=== PATIENT | male | born 1955 | race Caucasian/White ===

== ENCOUNTER 2021-08-05 10:50 | Inpatient (IN) | payer MEDICARE, SELFPAY ==
[2021-08-05] VITALS (28 sets, daily range): BP systolic 111–136; BP diastolic 52–81; PULSE 55–129; RESP 15–28; TEMP 36.5; O2SAT 90–100
--- NOTE | ~2021-08-05 | US_ITS ---
EXAMINATION: US venous doppler [facility] DATE: 08/05/2021 17:37 INDICATION: Lower limb edema. TECHNIQUE: Grayscale ultrasound images without and with compression and Doppler ultrasound images of the bilateral lower extremity veins were obtained. COMPARISON: None. FINDINGS: The visualized portions of right common femoral vein, profunda (deep) femoral vein, femoral vein, pop liteal vein, peroneal veins, posterior tibial veins, and greater saphenous vein outflow are patent. The visualized portions of left common femoral vein, profunda femoral vein, femoral vein, popliteal v ein, posterior tibial veins, and greater saphenous vein outflow are patent. There is thrombus in the left peroneal veins. IMPRESSION: 1. Deep vein thrombosis involving the left peroneal veins. Reviewed, dictated and finalized at location A. TIVE DESIGNER
--- NOTE | ~2021-08-05 | XR_ITS ---
EXAMINATION: XR chest ET placement DATE: 08/11/2021 03:51 INDICATION: Intubation. TECHNIQUE: A single frontal view of the chest was obtained. COMPARISON: Chest 2 views 08/05/2021, CT abdomen and pelvis 08/09/2021 FINDINGS: There is a posteriorly layering moderate-sized right pleural effusion. There are airspace o pacities in all lung zones and in left mid and lower lung zones. Calcified right lung nodules and ashley cified right hilar and mediastinal lymph nodes are consistent with old granulomatous disease. No pneu mothorax. The heart size is normal. The endotracheal tube tip is 3.3 cm above the delfino. There are c hanges of anterior fusion procedure in cervical spine. IMPRESSION: 1. Stable moderate-sized right pleural effusion. 2. Worsened airspace opacities in all right lung zones and in left mid and lower lung zones, consiste nt with atelectasis versus pneumonia. Reviewed, dictated and finalized at location A. REPAIRER IMPRESSION: 1. Stable moderate-sized right pleural effusion. 2. Worsened airspace opacities in all right lung zones and in left mid and lowe r lung zones, consistent with atelectasis versus pneumonia.
--- NOTE | ~2021-08-05 | CT_ITS ---
EXAMINATION: CT abdomen pelvis wo con DATE: 08/09/2021 08:08 INDICATION: Colonic distention. Lower abdominal pain. TECHNIQUE: Computed tomography (CT) of the abdomen and pelvis was performed without intravenous contr ast. Automated exposure control and iterative reconstruction technique were employed. The dose-length product was 367.78 mGy-cm. COMPARISON: Chest CT dated 08/05/2021 FINDINGS: No significant change in a moderate-sized right pleural effusion with collapse of the visualized port ions of the right middle and lower lobes. Low-attenuation mucous/fluid filling the proximal intermedi us and bronchi of the right middle and lower lobes. Calcified nodules in the collapse right middle an d lower lobes along with calcified right hilar lymph nodes consistent with old granulomatous disease. Trace left pleural effusion. There is relative elevation of the left hemidiaphragm versus depression of the right hemidiaphragm. Cardiomegaly. Atherosclerotic coronary artery calcific lesions. No peric ardial effusion. Multiple hepatic and splenic calcification consistent with old granulomatous disease. Numerous pancre atic parenchymal calcifications consistent with sequela of chronic pancreatitis. Gallbladder and righ t adrenal gland are normal. Approximately 1.2 cm low-attenuation left adrenal adenoma. 8 mm hyperdens e proteinaceous/hemorrhagic cyst at the lower pole of the right kidney. Left kidney is normal. Small amount of stool scattered throughout the colon. Single diverticulum along the descending colon withou t adjacent inflammatory change to suggest diverticulitis. Small bowel and appendix are normal. No dil ated bowel to suggest obstruction. Bladder is normal. Paranasal disease with calcific plaques along t he tunica albuginea at the base of the penis. No free intraperitoneal gas or fluid. No pathologically enlarged abdominal or pelvic lymphadenopathy. There is calcified atherosclerosis of the aorta and ma ny of the other arteries. There appears to be moderate 50-70% stenosis at the proximal superior mesen teric artery and along the right external iliac artery. Severe lower lumbar spondylosis. IMPRESSION: 1. Moderate-sized right pleural effusion with collapse of the visualized portion of the right middle and lower lobes. 2. No acute intra-abdominal/pelvic process. 2. Extensive atherosclerotic disease which is of moderate severity at the origin of the superior mese nteric artery as well as along the right external iliac artery. Reviewed, dictated and finalized at location A. PRINT DEVELOPER IMPRESSION: 1. Moderate-sized right pleural effusion with collapse of the visualized portio n of the right middle and lower lobes. 2. No acute intra-abdominal/pelvic process. 2. Extensive atherosclerotic disease which is of moderate severity at the origi n of the superior mesenteric artery as well as along the right external iliac a rtery.
--- NOTE | ~2021-08-05 | US_ITS ---
EXAMINATION: US art doppler w press LE BI DATE: 08/05/2021 17:36 INDICATION: Peripheral arterial disease. TECHNIQUE: Segmental pressures and plethysmographic and Doppler waveforms of the brachial and lower e xtremity arteries were obtained. COMPARISON: Arterial Doppler and segmental pressures 01/05/2017 FINDINGS: Right and left brachial artery pressures of 124 mm Hg and 124 mm Hg, respectively, are concordant (no rmal difference <= 30 mmHg). The right high-thigh pressure index is 0.83 (normal > 1.2). The right ankle-brachial index (ANDREIA) is 0 .91 (normal >= 0.9-1.0). The right great toe-brachial index (TBI) is 0.75 (normal >= 0.65). Arterial Doppler waveforms are biphasic from common femoral artery to the ankle. The left high-thigh pressure index is 0.91. The left low-thigh pressure index is 0.90. The left ANDREIA w as not measured due to the deep vein thrombosis. The left TBI was not measured. Arterial Doppler wave forms are biphasic from common femoral artery to the ankle. IMPRESSION: 1. Mildly decreased right ANDREIA and decreased left thigh pressures, consistent with arterial occlusive disease. The left ANDREIA was not measured due to the left calf deep vein thrombosis. Reviewed, dictated and finalized at location A. EGEE TENDER IMPRESSION: 1. Mildly decreased right ANDREIA and decreased left thigh pressures, consistent wi th arterial occlusive disease. The left ANDREIA was not measured due to the left ca lf deep vein thrombosis.
--- NOTE | ~2021-08-05 | XR_ITS ---
EXAMINATION: XR abdomen NG/feed tube insert DATE: 08/11/2021 03:51 INDICATION: Orogastric tube placement. TECHNIQUE: A supine view of the abdomen was obtained. COMPARISON: Abdomen radiographs 08/08/2021 FINDINGS: The lower abdomen and right lateral aspect of the abdomen were excluded. The nasogastric tu be tip is in the stomach. There is gaseous distention of the stomach. IMPRESSION: 1. Nasogastric tube tip in the stomach. Reviewed, dictated and finalized at location A. Y WORKER
--- NOTE | ~2021-08-05 | XR_ITS ---
XR chest 2V 08/05/2021 11:54 Indication: Shortness of breath Procedure: 2 view chest Comparison: No prior studies for comparison. Findings: Moderate right pleural effusion with underlying compressive atelectasis. Heart size normal for technique. Left lung clear. No left effusion or pneumothorax. No acute osseous abnormality. Impression: 1: Moderate right pleural effusion with underlying compressive atelectasis. Reviewed, dictated and finalized at location B. DING ILLUMINATING ENGINEER Impression: 1: Moderate right pleural effusion with underlying compressive atelectasis.
--- NOTE | ~2021-08-05 | US_ITS ---
EXAMINATION: US venous doppler [facility] DATE: 08/05/2021 17:37 INDICATION: Upper limb edema. TECHNIQUE: Grayscale ultrasound images without and with compression and Doppler ultrasound images of the bilateral upper extremity veins were obtained. COMPARISON: None. FINDINGS: The visualized portions of the right internal jugular vein, subclavian vein, axillary vein, brachial veins, basilic vein, cephalic vein, radial vein, and ulnar vein are patent. The visualized portions of the left internal jugular vein, subclavian vein, axillary vein, brachial v eins, basilic vein, cephalic vein, radial vein, and ulnar vein are patent. IMPRESSION: 1. No deep venous thrombosis. Reviewed, dictated and finalized at location A. FITTER
--- NOTE | ~2021-08-05 | US_ITS ---
EXAMINATION: US venous doppler [facility] DATE: 08/11/2021 11:05 INDICATION: Lower limb swelling, history of deep venous thrombosis TECHNIQUE: Silverman scale images without and with compression and Doppler images of the bilateral lower e xtremity veins were obtained. COMPARISON: 08/05/2021 FINDINGS: The right common femoral vein, profunda femoral vein, femoral vein, popliteal vein, peroneal trunk, p osterior tibial veins, and greater saphenous vein are patent. There is superficial venous thrombosis of the right leg. There is persistent thrombosis of the left peroneal vein. The left common femoral vein, profunda femo ral vein, femoral vein, popliteal vein, posterior tibial veins, and greater saphenous vein are patent . IMPRESSION: 1. Persistent thrombosis of the left peroneal vein. 2. Superficial venous thrombosis of the right leg. Reviewed, dictated and finalized at location A. SSING PRESS OPERATOR APPRENTICE
--- NOTE | ~2021-08-05 | XR_ITS ---
EXAMINATION: XR abdomen obstructive series EXAM DATE: 08/08/2021 13:59 INDICATION: Low abdominal pain. TECHNIQUE: Frontal projection of the upper abdomen, frontal projection lower abdomen/pelvis for inter pretation. There is no prior study for comparison. FINDINGS: There is moderate right-sided subpulmonic pleural effusion with adjacent atelectasis. Mode rate to large amount of ascending and transverse colonic gas. No small bowel obstruction suspected. N o free intraperitoneal gas. There is no organomegaly. IMPRESSION: 1. Moderate to large amount of ascending and transverse colonic gas. 2. Moderate right pleural effusion, adjacent atelectasis. Reviewed, dictated and finalized at location B. ERING MACHINE TENDER
--- NOTE | ~2021-08-05 | CT_ITS ---
EXAMINATION: CTA chest PE protocol DATE: 08/05/2021 20:35 INDICATION: Shortness of breath. TECHNIQUE: Computed tomography angiography (CTA) of the chest was performed with 100 mL Omnipaque-350 intravenous contrast timed to evaluate the pulmonary arteries. Coronal maximum intensity projection 3D-reconstructions were created by the technologist. Automated exposure control and iterative reconst ruction technique were employed. The dose-length product was 363.26 mGy-cm. COMPARISON: Chest 2 views 08/05/2021 FINDINGS: There is a moderate-sized right pleural effusion. There is mucous plugging in right mainste m bronchus and bronchus intermedius. Calcified right lung nodules and calcified right hilar lymph nod es are consistent with old granulomatous disease. There is atelectasis involving the majority of righ t middle lobe and right lower lobe. There is mild emphysema. There is mild scarring at the lung apice s. There is mild dependent atelectasis in left lung. There is a trace left pleural effusion. There is left ventricular enlargement of the heart. There are coronary artery calcifications. No pericardial effusion. There is thrombus in left atrial appendage. There is a pulmonary embolus in posterobasal se gment left lower lobe. There is mild stenosis of proximal left subclavian artery. Calcifications in t he liver and spleen are consistent with old granulomatous disease. There is a 1.5 cm mass in left adr enal gland measuring low attenuation, consistent with an adenoma. There is moderate stenosis of super ior mesenteric artery and celiac axis. There is mild thoracic spondylosis. There are changes of anter ior fusion procedure in cervical spine. IMPRESSION: 1. Acute pulmonary embolus in posterobasal segment left lower lobe. 2. Moderate-sized right pleural effusion. 3. Mild emphysema. 4. Thrombus in left atrial appendage of the heart. Reviewed, dictated and finalized at location A. ORADIO OPERATOR
--- NOTE | 2021-08-05 11:32 | ECG_ITS ---
Measurements Intervals [place] Rate: 99 P: [place]: 0 QRS: -81 QRSD: 157 T: 82 QT: 386 QTc: 497 Interpretive Statements ATRIAL FIBRILLATION FREQUENT VENTRICULAR PREMATURE COMPLEXES LEFT AXIS DEVIATION RIGHT BUNDLE BRANCH BLOCK INFERIOR INFARCT, AGE INDETERMINATE BASELINE ARTIFACT- I, II, III, AVR, AVL, AVF ABNORMAL ECG Electronically Signed On 08-05-2021 17:51:06 ENTRY LEVEL TRUCK DRIVER by Jason Kruse D.O.
[2021-08-05 12:42] LABS: Basophils Absolute Auto 0.1 K/mm3 (0.0-0.1); Basophils Percent Auto 0.6 % (0.2-1.2); Eosinophils Absolute Auto 0.1 K/mm3 (0-0.3); Eosinophils Percent Auto 0.7 % (0-4.4); Hematocrit 30.4 % (42.0-52.0); Hemoglobin 8.3 g/dL (14.0-18.0); Immature Granulocyte Absolute 0.06 K/mm3 (0.00-0.031); Immature Granulocyte Percent A 0.6 % (0-0.5); Lymphocytes Absolute Auto 1.77 K/mm3 (0.9-3.2); Mean Corpuscular HGB Conc 27.3 g/dl (32-36); Mean Corpuscular Hemoglobin 18.8 pg (26-34); Mean Corpuscular Volume 68.8 fl (80-100); Monocytes Absolute Auto 0.8 K/mm3 (0.1-0.6); Monocytes Percent Auto 7.9 % (2.6-8.5); Neutrophils Absolute Auto 7.1 K/mm3 (1.3-6.7); Neutrophils Percent Auto 72.2 % (45.5-73.1); Platelet Count Result 249 k/mm3 (150-375); Red Blood Count 4.42 M/mm3 (4.6-6.20); Red Cell Distribution Width 23.5 % (11.5-14.5); White Blood Count 9.8 K/mm3 (4.5-10.0)
--- NOTE | 2021-08-05 12:42 | ED.SOB ---
HPI - SOB/Dyspnea General Chief Complaint: Shortness of Breath/Dyspnea Stated Complaint: Difficulty Breathing Time Seen by Provider: 08/05/21 11:52 History of Present Illness HPI Narrative: Patient is a 65-year-old male who presents ER with shortness of breath. Reports recent hospitalization at [facility]. Reports he had fluid in his lungs and was placed on a diuretic. He reports since then his edema has started come back in his arms and has had increasing shortness of breath especially with exertion. He followed up with his keg filler today who recommended he go to [place] instead of [place] because he felt the patient to receive better care here. Patient denies orthopnea. No fevers chills or sweats. Reports he completed a course of antibiotics for his lungs and he had also been on clindamycin chronically for his foot. No new productive cough. Patient had been taking Levaquin for possible lung infection. He reports he has been having diarrhea since being on the antibiotic. Had 1 loose stool today. Related Data Allergies Allergy/AdvReac Type Severity Reaction Status Date / Time Penicillins Allergy Mild Verified 04/21/10 23:27 Review of Systems Review of Systems: All systems reviewed & are unremarkable except as noted in HPI and below Constitutional: Constitutional: Denies chills, Reports fatigue, Denies fever(s) and Reports weakness ENT: Denies nasal congestion and Denies sore throat Cardiovascular: Cardiovascular: Denies chest pain, Denies rapid heart rate and Denies radiating jaw, neck or arm pain Respiratory: Respiratory: Denies cough, Reports dyspnea and Denies wheezing Gastrointestinal: Gastrointestinal: Denies abdominal pain, Reports diarrhea, Denies nausea and Denies vomiting Musculoskeletal: Musculoskeletal: Denies myalgias and Denies arthralgias Comments: Extremity edema PMFSH Past Medical History Medical History (Updated 08/05/21 @ 14:50 by Moe Hamilton MD) Atrial fibrillation CHF (congestive heart failure) CVA (cerebral vascular accident) Hyperlipidemia Hypertension Restless leg syndrome Rheumatoid arthritis Surgical History Surgical History (Updated 08/05/21 @ 12:48 by Moe Hamilton MD) History of tonsillectomy Social History Social History (Updated 08/05/21 @ 12:48 by Moe Hamilton MD) Smoking status: Current every day smoker Exam Narrative: GENERAL: Chronically ill-appearing, well-nourished, and in no acute distress. HEAD: Normocephalic, atraumatic. ENT: Mucous membranes moist. CHEST: Clear to auscultation but diminished right base. No respiratory distress. HEART: Irregular regular rate and rhythm. Normal peripheral pulses. ABDOMEN: Soft, lower abdominal tenderness bilaterally without guarding, nondistended, normal active bowel sounds. EXTREMITIES: Normal range of motion. 1+ edema. SKIN: Warm, dry, no rash. NEURO: Alert and oriented x3. PSYCH: Normal mood and affect. Course Course Emergency Course: Patient informed results. Admit to hospitalist service. Cardiology consulted and will see inpatient. No need for anticoagulation given the fact that he is already on Xarelto. Patient given Lasix for diuresis. Vital Signs Vital signs: Vital Signs Temperature 97.7 F 08/05/21 11:21 Pulse Rate 55 L 08/05/21 11:21 Respiratory Rate 24 H 08/05/21 11:21 Blood Pressure 112/59 L 08/05/21 11:21 Pulse Oximetry 90 08/05/21 11:21 Temperature 97.7 F 08/05/21 11:21 Pulse Rate 55 L 08/05/21 11:21 Respiratory Rate 24 H 08/05/21 11:21 Blood Pressure 112/59 L 08/05/21 11:21 Pulse Oximetry 90 08/05/21 11:21 MDM - SOB/Dyspnea Lab Data Result diagrams: 08/05/21 12:37 08/05/21 12:37 Labs: Lab Results 08/05/21 08/05/21 08/05/21 Range/Units 12:37 12:37 12:37 WBC 9.8 (4.5-10.0) K/mm3 RBC 4.42 L (4.6-6.20) M/mm3 Hgb 8.3 L (14.0-18.0) g/dL Hct 30.4 L (42.0-52.0) % MCV 68.8 L (80-1
[2021-08-05 12:57] LABS: INR 1.4; Prothrombin Time 16.5 Seconds (11.1-14.7)
[2021-08-05 12:58] LABS: Alanine Aminotransferase 13 U/L (4-50); Albumin Level 2.1 g/dL (3.5-5.1); Alkaline Phosphatase 127 U/L (38-126); Anion Gap 3 mmol/L (8-16); Aspartate Amino Transferase 33 U/L (17-59); Bilirubin,Total 0.9 mg/dL (0.2-1.3); Blood Urea Nitrogen 15 mg/dL (9-20); Calcium 7.4 mg/dL (8.4-10.2); Carbon Dioxide 27 mmol/L (22-30); Chloride 103 mmol/L (98-107); Estimated CRCL calculation 63 ml/min; Estimated Glomerular Filt Rate > 60; Glucose 73 mg/dL (65-110); Partial Thromboplastin Time 26.9 SECONDS (22.3-36.8); Potassium 3.4 mmol/L (3.4-5.0); Sodium 133 mmol/L (137-145)
[2021-08-05 13:05] LABS: Hypochromasia 1+ (NORMAL); Microcytosis 1+ (NORMAL); Platelet Estimate Adequate (Adequate)
[2021-08-05 13:10] LABS: NT Pro B Type Natriuretic Pept 13800 pg/mL (5-100); Troponin I 0.382 ng/mL (0.000-0.034)
[2021-08-05] MEDS: FUROSEMIDE INJ 40 MG/4 ML VIAL IV PUSH (13:38)
--- NOTE | 2021-08-05 15:00 | PM.IMHP ---
H&P: HPI History of Present Illness Date/Time: 08/05/21 15:00 Chief Complaint: Shortness of breath. Narrative: This is a chronically ill 65-year-old male smoker with history of stroke, congestive heart failure, atrial fibrillation, peripheral vascular disease, hypertension, and rheumatoid arthritis who presented to the emergency department earlier today via private vehicle from home for evaluation of shortness of breath. He was recently hospitalized at [facility] for what sounds like a congestive heart failure exacerbation and he had a follow-up appointment with his doctor today. At that appointment he reported worsening shortness of breath, increasing edema, and weakness over the past several days and he was instructed to come to the ER. His SpO2 was 90% on room air on arrival and EKG demonstrated atrial fibrillation with rapid ventricular response although telemetry this time appears to be sinus tachycardia with ectopy. His proBNP and troponin were both elevated and I was asked to admit the patient in this setting. At the time my evaluation he does not have any acute complaints and he denies chest pain, pleuritic pain, orthopnea, and PND. He also denies focal weakness and paresthesias. It should be noted that the patient has been very sedentary and has gotten increasingly more weak and it is now to the point where he spends a majority of his time in a chair and he uses a bedside commode. He tells me that it is too painful for him to walk, and he blames that on wounds on his feet and swelling in his lower extremities. He was not strong enough to help sit himself up in bed and required a 2 person assist. Review of Systems Review of Systems: Twelve systems were reviewed. He denies fever but does report chills. No sinus congestion, rhinorrhea, otalgia, or odynophagia. He denies dysphagia and concerns for aspiration. No abdominal pain, nausea, or vomiting. His appetite has not been good for quite some time and he tells me that his taste buds have not been good for several years. He denies GERD symptoms. Approximately 6 months ago he had dark stools every day for 3 weeks and apparently he had an upper and lower endoscopy done for evaluation of the same which was unremarkable, per patient report. He denies dysuria and hematuria. No diarrhea. No syncope but he reports near-syncope earlier today when he got up out of his chair. Except as documented, all other systems were reviewed and are negative. [facility] Past Medical History Medical History (Updated 08/05/21 @ 21:02 by Radha Krishnamurthy PA-C) Cerebrovascular accident Acute infarction of the right lentiform nucleus and caudate nucleus noted on brain MRI on 06/30/2014. Congestive heart failure Hyperlipidemia Hypertension Paroxysmal atrial fibrillation Restless leg syndrome Rheumatoid arthritis Tobacco dependence Surgical History Surgical History (Updated 08/05/21 @ 20:16 by Radha Krishnamurthy PA-C) History of amputation of toe Left 1st and 2nd toe amputation. History of fusion of cervical spine Family History Family History (Updated 08/05/21 @ 20:16 by Radha Krishnamurthy PA-C) Other Coronary artery disease Rheumatoid arthritis Social History Social History (Updated 08/05/21 @ 20:17 by Radha Krishnamurthy PA-C) Social History: The patient lives with his in [place]. 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 He has smoked a pack of cigarettes a day for 57 years. He drinks alcohol rarely on social occasions. No illicit substance use. He designates his Nydia Dwyer as his surrogate decision maker and he wishes to be a full code. Meds Home Medications and Allergies Allergies Allergy/AdvReac Type Severity Reaction Status Date / Time Penicillins Allergy Mild Verified 04/21/10 23:27 Vital Signs Vital Signs - 24 hr 08/05/21 11:21 Temperature 97.7 F Pulse Rate 55 L Respiratory Rate 24 H Blood Pressure 112/59 L Pulse Oximetry 90 Exam Narrative: G
[2021-08-05 18:32] LABS: D Dimer 3.12 ug/mL (<0.48)
[2021-08-05 18:52] LABS: Troponin I 0.375 ng/mL (0.000-0.034)
[2021-08-05 19:26] LABS: Iron < 10 ug/dL (49-181)
[2021-08-05 19:40] LABS: Folic Acid 9.6 ng/mL (2.76->20); Percent Iron Saturation < 4 % (20-50); Vitamin B12 > 1000.0 pg/mL (239-931)
[2021-08-05 19:58] LABS: Thyroid Stimulating Hormone Reflex 0.401 uIU/mL (0.465-4.68)
[2021-08-05 21:14] LABS: Basophils Percent Auto 0.5 % (0.2-1.2); Eosinophils Absolute Auto 0.1 K/mm3 (0-0.3); Eosinophils Percent Auto 0.8 % (0-4.4); Hematocrit 30.5 % (42.0-52.0); Hemoglobin 8.2 g/dL (14.0-18.0); Immature Granulocyte Absolute 0.06 K/mm3 (0.00-0.031); Immature Granulocyte Percent A 0.7 % (0-0.5); Lymphocytes Absolute Auto 1.32 K/mm3 (0.9-3.2); Lymphocytes Percent Auto 15.7 % (18.3-44.2); Mean Corpuscular HGB Conc 26.9 g/dl (32-36); Mean Corpuscular Hemoglobin 19.2 pg (26-34); Mean Corpuscular Volume 71.4 fl (80-100); Mean Platelet Volume 9.6 fl (7.4-10.4); Monocytes Absolute Auto 0.7 K/mm3 (0.1-0.6); Monocytes Percent Auto 8.6 % (2.6-8.5); Neutrophils Absolute Auto 6.2 K/mm3 (1.3-6.7); Neutrophils Percent Auto 73.7 % (45.5-73.1); Platelet Count Result 235 k/mm3 (150-375); Red Blood Count 4.27 M/mm3 (4.6-6.20); Red Cell Distribution Width 23.7 % (11.5-14.5); White Blood Count 8.4 K/mm3 (4.5-10.0)
[2021-08-05 21:24] LABS: INR 1.4; Partial Thromboplastin Time 33.5 SECONDS (22.3-36.8); Prothrombin Time 16.8 Seconds (11.1-14.7)
[2021-08-05] MEDS: HEPARIN SOD/D5W 100 UNITS/ML 25,000 UNITS/250 ML BAG 13 UNITS IV CONT (21:25)
[2021-08-05 21:37] LABS: Digoxin 0.7 ng/mL (0.8-2.0)
[2021-08-05 21:48] LABS: Troponin I 0.301 ng/mL (0.000-0.034)
[2021-08-05 22:25] LABS: Free T4 Free Thyroxine Reflex 2.28 ng/dL (0.78-2.19)
[2021-08-06] VITALS (16 sets, daily range): BP systolic 109–126; BP diastolic 48–81; PULSE 100–130; RESP 18–24; TEMP 36.4–37.5; O2SAT 95–98; BMI 21.2
--- NOTE | 2021-08-06 02:28 | ADMGEN ---
This patient, Adrian Dwyer, was admitted to IMU Room 200-01. Patient/family oriented to hospital policies and general routines including ID bracelet, bed and alarms, visiting hours, pain management, procedures, bathroom and other care routines, personal items, smoking policy, room service/diet, and visiting hours. Information on how to activate the Rapid Response Team has been discussed. Patient/Family are encouraged to report perceived risks to care and to ask questions if they do not understand what they are told or what they should do.
[2021-08-06 03:43] LABS: Alanine Aminotransferase 11 U/L (4-50); Alkaline Phosphatase 139 U/L (38-126); Anion Gap 5 mmol/L (8-16); Aspartate Amino Transferase 23 U/L (17-59); Bilirubin,Total 0.6 mg/dL (0.2-1.3); Blood Urea Nitrogen 13 mg/dL (9-20); Calcium 7.1 mg/dL (8.4-10.2); Carbon Dioxide 26 mmol/L (22-30); Chloride 104 mmol/L (98-107); Estimated CRCL calculation 63 ml/min; Estimated Glomerular Filt Rate > 60; Glucose 84 mg/dL (65-110); Magnesium 2.1 mg/dL (1.6-2.3); Phosphorus 3.1 mg/dL (2.5-4.5); Potassium 2.9 mmol/L (3.4-5.0); Sodium 135 mmol/L (137-145)
[2021-08-06 03:44] LABS: Partial Thromboplastin Time 102.7 SECONDS (22.3-36.8)
[2021-08-06 04:33] LABS: Basophils Percent Auto 0.5 % (0.2-1.2); Eosinophils Absolute Auto 0.1 K/mm3 (0-0.3); Eosinophils Percent Auto 0.8 % (0-4.4); Hematocrit 31.5 % (42.0-52.0); Hemoglobin 8.3 g/dL (14.0-18.0); Immature Granulocyte Absolute 0.05 K/mm3 (0.00-0.031); Immature Granulocyte Percent A 0.6 % (0-0.5); Immature Platelet Fraction Pct 4.4 % (0.9-11.2); Lymphocytes Absolute Auto 1.76 K/mm3 (0.9-3.2); Lymphocytes Percent Auto 20.3 % (18.3-44.2); Mean Corpuscular HGB Conc 26.3 g/dl (32-36); Mean Corpuscular Hemoglobin 18.9 pg (26-34); Mean Corpuscular Volume 71.8 fl (80-100); Mean Platelet Volume 9.8 fl (7.4-10.4); Monocytes Absolute Auto 0.7 K/mm3 (0.1-0.6); Neutrophils Percent Auto 69.8 % (45.5-73.1); Platelet Count Result 226 k/mm3 (150-375); Red Blood Count 4.39 M/mm3 (4.6-6.20); Red Cell Distribution Width 23.7 % (11.5-14.5); White Blood Count 8.7 K/mm3 (4.5-10.0)
[2021-08-06] MEDS: POTASSIUM CHLORIDE 20 MEQ PACKET (FOR LIQUID) 40 MEQ PO (04:59)
[2021-08-06] MEDS: FUROSEMIDE INJ 40 MG/4 ML VIAL IV PUSH ×2 (08:45→20:32)
--- NOTE | 2021-08-06 09:15 | PM.CNCAR ---
Assessment and Plan Assessment and plan (1) Acute on chronic systolic and diastolic heart failure, NYHA class 1: Code(s): I50.43 - Acute on chronic combined systolic (congestive) and diastolic (congestive) heart failure Status: Acute Assessment and Plan: Patient has chronic heart failure, probably systolic and diastolic, with rales and edema and elevated BNP consistent with a mild exacerbation. However think the main reason for his admission is as pulmonary embolus. Agree with diuresis with 40 mg IV push b.i.d.. Hypokalemic; will supplement. Daily BMP (2) Pulmonary embolism: Code(s): I26.99 - Other pulmonary embolism without acute cor pulmonale Status: Acute Assessment and Plan: Two episodes of acute shortness of breath over the last 2 days with a pulmonary embolus noted on CT scan. Currently on heparin. Transition to an oral agent in 1-2 days. (3) Cardiomyopathy: Code(s): I42.9 - Cardiomyopathy, unspecified Status: Acute Assessment and Plan: Patient reports his heart function is 20-28%. Echo pending. In the long run there is room for improvement for his CHF/cardiomyopathy medications; consider Entresto if covered by insurance, ELAN-inhibitor or ARB if not. Consider SGL T2 inhibitor. Consider weaning off diltiazem in using amiodarone instead or pacemaker and AV node ablation if needed for rate control. (4) Elevated troponin: Code(s): R77.8 - Other specified abnormalities of plasma proteins Status: Acute Assessment and Plan: Elevated troponin 0.3 but flat curve, no ACS. Due to PE, chronic CHF and AFib. (5) Atrial fibrillation with RVR: Code(s): I48.91 - Unspecified atrial fibrillation Status: Acute Assessment and Plan: Has AFib, unclear if persistent or paroxysmal, with a rapid ventricular rate this morning. Since he is taking metoprolol, digoxin and diltiazem I suspect he has had a difficult to control rate. Will try some IV metoprolol for HR control. Home med list states metoprolol tartrate 100 mg daily; here he is getting 25 mg Q 12 per I will increase it to 50 mg b.i.d.. Has a left atrial appendage thrombus. Interesting that this would occur while he is taking Xarelto, although at a sub optimal dose of 15 mg daily (GFR here, at least, is greater than 60 and 20 mg daily would be a more appropriate dose for full anticoagulation. Perhaps a reduced dose 2nd GI bleed 6 months ago?). Currently on heparin. (6) CAD (coronary artery disease): Code(s): I25.10 - Atherosclerotic heart disease of [place] coronary artery without angina pectoris Status: Acute Assessment and Plan: Sounds like the patient has underlying CAD since he gives a history of 2 MIs. Stable. Continue atorvastatin, etc. (7) Peripheral vascular disease: Code(s): I73.9 - Peripheral vascular disease, unspecified Status: Acute Assessment and Plan: History of PCI in 2017. Diffuse vascular disease (PVD, CAD, h/o strokes). High risk of recurrent events. History of Present Illness History of Present Illness Consult date/time: 08/06/21 09:15 Requesting physician: Radha Krishnamurthy PA-C Consult reason: congestive heart failure Reason For Visit: chf exacerbation/elevated troponin/pleural effusio Narrative: Adrian Dwyer is a 65 year old male who is usually followed by Dr. Mejía whom we were asked to see by ANDRADE terrazas for advice and opinion regarding his CHF in consultation. He carries a history of CHF, AFib, stroke, peripheral vascular disease, hypertension and rheumatoid arthritis. He was hospitalized at [facility] about 3 or 4 weeks ago, probably for CHF. The patient is chronically weak and nearly nonambulatory. He states that since he was discharged 3 or 4 weeks ago from [place] after a hospitalization for fluid buildup in his lungs he was doing really well, with no shortness of breath.
[2021-08-06] MEDS: PANTOPRAZOLE 40 MG TABLET PO ×2 (09:42→17:08)
[2021-08-06] MEDS: METOPROLOL TARTRATE 25 MG TABLET PO ×2 (09:43→11:52)
[2021-08-06] MEDS: predniSONE 10 MG TABLET PO ×2 (09:44→17:08)
[2021-08-06] MEDS: ATORVASTATIN 40 MG TABLET PO (09:44)
[2021-08-06] MEDS: cilostazoL 100 MG TABLET PO ×2 (09:44→17:08)
[2021-08-06] MEDS: POTASSIUM CHLORIDE 20 MEQ TABLET PO (09:45)
[2021-08-06] MEDS: ISOSORBIDE MONONITRATE 30 MG TAB.ER.24H PO (09:45)
[2021-08-06 09:53] LABS: Partial Thromboplastin Time 47.9 SECONDS (22.3-36.8)
[2021-08-06] MEDS: HEPARIN SODIUM 5,000 UNITS/ML VIAL 5500 UNITS IV PUSH ×2 (09:58→17:08)
[2021-08-06] MEDS: DIGOXIN TAB 125 MCG TABLET PO (11:52)
[2021-08-06] MEDS: SIMETHICONE 80 MG TAB.CHEW PO ×3 (13:35→20:31)
[2021-08-06 13:55] LABS: Potassium 3.4 mmol/L (3.4-5.0)
--- NOTE | 2021-08-06 14:07 | PM.IMPN ---
Progress Note: A&P Assessment and Plan (1) Pulmonary embolism: Code(s): I26.99 - Other pulmonary embolism without acute cor pulmonale Status: Acute Assessment and Plan: Chest CTA shows an acute pulmonary embolus in the posterior basal segment of the left lower lobe. No evidence of right heart strain on CT though his BNP and troponin are elevated. These markers could be elevated for other etiologies. He states he was compliant with his Xarelto but it is noted to be subtherapeutic dosing. He was started on a heparin drip. (2) Thrombus of left atrial appendage: Code(s): I51.3 - Intracardiac thrombosis, not elsewhere classified Status: Acute Assessment and Plan: CTA chest showing a thrombus in left atrial appendage of the heart. Probably related to the AFib but unclear why he has this if he has been compliant with his Xarelto. Echo pending. Continue heparin drip. Cardiology consulted and appreciate their input. (3) Acute exacerbation of congestive heart failure: Code(s): I50.9 - Heart failure, unspecified Status: Acute Assessment and Plan: BNP 13936. CT scan shownig moderate right pleural effusion and emphysema but no overt pulmonary edema. Unclear if pleural effusion has jaja evaluated. He does appear fluid overloaded clinically. I/O's unreliable at this time. Renal function remaining stable. Will continue IV Lasix and follow clinically. Follow up on echocardiogram results. Will request old records (4) Elevated troponin: Code(s): R77.8 - Other specified abnormalities of plasma proteins Status: Acute Assessment and Plan: Troponin 0.38 on admission and has trended downward. He denies chest pain and no acute ST segment changes noted on EKG.Echo pending. Suspect related to the PE, CHF and/or AFib/RVR causing nonischemic myocardial injury. Cardiology following. Add ASA. Continue Lipitor, Lopressor and Imdur. (5) Deep venous thrombosis of left peroneal vein: Code(s): I82.452 - Acute embolism and thrombosis of left peroneal vein Status: Acute Assessment and Plan: Plan is as detailed above. It is noted that the patient was taking Xarelto at home. (6) Protein calorie malnutrition: Code(s): E46 - Unspecified protein-calorie malnutrition Status: Acute Assessment and Plan: Albumin 2.0. B12/folate normal. Check UA. Continue dietary supplements. (7) Generalized weakness: Code(s): R53.1 - Weakness Status: Acute Assessment and Plan: Related to chronic illnesses, deconditioning and malnutrition that is exacerbated by current issues as above. Continue fall precautions. Ambulate with assistance. PT/OT consulted. Will certainly need rehab before returning home. (8) Microcytic anemia: Code(s): D50.9 - Iron deficiency anemia, unspecified Status: Acute Assessment and Plan: Patient reports having dark stools proximally 6 months ago for which he had an upper and lower endoscopy that was unremarkable per his report. Iron studies consistent with iron deficiency with low TIBC related to poor oral intake. Stool for occult blood ordered. Hgb low but stable in the 8 range. Monitor closely as he is being started on a heparin drip. (9) Peripheral vascular disease: Code(s): I73.9 - Peripheral vascular disease, unspecified Status: Acute Assessment and Plan: Patient reports pain in his legs with walking although he has been blaming that on his wounds. He has a hx of PAD. Arterial LE doppler showing mildly decreased right ANDREIA and decreased left thigh pressures consistent with arterial occlusive disease. Continue Pletal and Lipitor. Add ASA. (10) Paroxysmal atrial fibrillation: Code(s): I48.0 - Paroxysmal atrial fibrillation Status: Acute Assessment and Plan: Chest CTA shows left atrial appendage thrombus which possibly occurred on Xarelto (albeit lower dos
[2021-08-06] MEDS: HEPARIN SOD/D5W 100 UNITS/ML 25,000 UNITS/250 ML BAG 16 UNITS IV CONT (16:00)
[2021-08-06 16:33] LABS: Partial Thromboplastin Time 39.2 SECONDS (22.3-36.8)
[2021-08-06] MEDS: EUCERIN CREAM 120 GM JAR 1 APPLIC TOPICAL (17:07)
[2021-08-06] MEDS: COLLAGENASE OINT 30 GM TUBE 1 APPLIC TOPICAL (17:07)
[2021-08-06] MEDS: FERROUS SULFATE 324 MG TABLET PO (17:08)
[2021-08-06] MEDS: POTASSIUM CHLORIDE 20 MEQ TABLET 40 MEQ PO (17:08)
[2021-08-06] MEDS: METOPROLOL TARTRATE 50 MG TAB PO (20:31)
--- NOTE | 2021-08-06 21:03 | ECHO_ITS ---
Patient Info Name: Adrian Dwyer Age: 65 years : 1955 Gender: Male Ht: 72 in Wt: 155 lbs BSA: 1.88 m2 HR: 123 bpm BP: 120 / 54 mmHg Heart Rhythm: Atrial Fibrillation Technical Quality: Fair Exam Date: 08/06/2021 9:56 AM Exam Location: [facility] Pulmonary Exam Room: [facility]/1 Patient Status: Inpatient Admit Date: 08/06/2021 Staff Ordering Physician: Radha Krishnamurthy PA-C District Leader: LEONILA /EZIO Attending Provider: Hank Neal MD Referring Physician: Yessy STATON; Exam Type: CA echo doppler color flow Study Info Indications - LEFT ATRIAL APPENDAGE THROMBUS PE HTN AFIB Complete two-dimensional, color flow and Doppler transthoracic echocardiogram is performed. Summary 1. Complete two-dimensional, color flow and Doppler transthoracic echocardiogram is performed. 2. Mild left ventricular enlargement with normal wall thickness. Severe global dysfunction is present, perhaps worse in the inferior wall. Estimated ejection fraction visually is 25-30%. Diastolic function is indeterminate. 3. Left atrial chamber dimension is severely enlarged. 4. There is moderate aortic valve regurgitation. 5. There is severe mitral valve regurgitation. 6. There is mild tricuspid valve regurgitation. 7. Atrial fibrillation with a rapid ventricular response. 8. Technically difficult study. Left Ventricle Left ventricular chamber dimension is normal. Left ventricular systolic function is severely reduced, estimated at 25-30%. There is no increased left ventricular wall thickness. Left ventricular septal wall motion is normal. The left ventricular diastolic function is indeterminate. Right Ventricle Right ventricular chamber dimension is normal. Right ventricular systolic function is normal. Left Atria Left atrial chamber dimension is severely enlarged. Right Atria Right atrial chamber dimension is normal. Aortic Valve The aortic valve is trileaflet. There is moderate aortic valve sclerosis. There is no aortic valve stenosis. There is moderate aortic valve regurgitation. Pulmonic Valve The pulmonic valve is normal. There is no pulmonic valve stenosis. There is no pulmonic regurgitation. Mitral Valve The mitral valve has normal leaflets. There is no mitral valve stenosis. There is severe mitral valve regurgitation. The mitral valve annulus is moderately calcified. Tricuspid Valve The tricuspid valve leaflets are normal. There is no significant tricuspid valve stenosis. There is mild tricuspid valve regurgitation. No pulmonary hypertension, estimated pulmonary arterial systolic pressure is Empty. Pericardium/Pleural The pericardium appears normal. There is no pericardial effusion. Inferior Vena Cava Normal inferior vena cava with >50% collapse upon inspiration consistent with Empty right atrial pressure, 10 mmHg. Aorta The aortic root size at the sinus of Valsalva is normal. The prox ascending aorta size is normal. Left Ventricular Outflow Tract Name Value Normal LVOT 2D LVOT Diameter 1.9 cm LVOT Doppler LVOT Peak Gradient 3 mmHg
[2021-08-07] VITALS (17 sets, daily range): BP systolic 94–121; BP diastolic 43–91; PULSE 68–121; RESP 18–24; TEMP 35.9–36.6; O2SAT 94–100
[2021-08-07 00:08] LABS: Partial Thromboplastin Time > 200.0 SECONDS (22.3-36.8)
[2021-08-07 01:20] LABS: Add Urine Microscopic? NO; Appearance Urine Clear (Clear); Bilirubin Urine Negative (Negative); Blood Urine Negative (Negative); Color Urine Straw (Yellow); Glucose Urine UA Negative (Negative); Ketones Urine Negative (Negative); Leukocyte Esterase Ur Negative LEU/UL (Negative); Nitrate Urine Negative (Negative); Protein Urine Negative (Negative); Specific Grav Ur 1.008 (1.001-1.035); Urobilinogen Urine Negative mg/dL (<2.0)
[2021-08-07] MEDS: HEPARIN SOD/D5W 100 UNITS/ML 25,000 UNITS/250 ML BAG 17 UNITS IV CONT (06:40)
[2021-08-07 07:55] LABS: Basophils Percent Auto 0.3 % (0.2-1.2); Eosinophils Percent Auto 0.1 % (0-4.4); Hematocrit 27.7 % (42.0-52.0); Hemoglobin 7.5 g/dL (14.0-18.0); Immature Granulocyte Absolute 0.16 K/mm3 (0.00-0.031); Immature Granulocyte Percent A 1.9 % (0-0.5); Lymphocytes Absolute Auto 1.71 K/mm3 (0.9-3.2); Lymphocytes Percent Auto 19.9 % (18.3-44.2); Mean Corpuscular HGB Conc 27.1 g/dl (32-36); Mean Corpuscular Hemoglobin 19.1 pg (26-34); Mean Corpuscular Volume 70.7 fl (80-100); Mean Platelet Volume 9.6 fl (7.4-10.4); Monocytes Absolute Auto 0.8 K/mm3 (0.1-0.6); Monocytes Percent Auto 9.1 % (2.6-8.5); Neutrophils Absolute Auto 5.9 K/mm3 (1.3-6.7); Neutrophils Percent Auto 68.7 % (45.5-73.1); Platelet Count Result 235 k/mm3 (150-375); Red Blood Count 3.92 M/mm3 (4.6-6.20); Red Cell Distribution Width 23.2 % (11.5-14.5); White Blood Count 8.6 K/mm3 (4.5-10.0)
[2021-08-07] MEDS: EUCERIN CREAM 120 GM JAR 1 APPLIC TOPICAL ×2 (08:28→16:20)
[2021-08-07] MEDS: COLLAGENASE OINT 30 GM TUBE 1 APPLIC TOPICAL (08:28)
[2021-08-07] MEDS: FERROUS SULFATE 324 MG TABLET PO ×2 (08:29→16:20)
[2021-08-07] MEDS: SIMETHICONE 80 MG TAB.CHEW PO ×4 (08:29→20:13)
[2021-08-07] MEDS: cilostazoL 100 MG TABLET PO ×2 (08:29→16:20)
[2021-08-07] MEDS: ATORVASTATIN 40 MG TABLET PO (08:29)
[2021-08-07] MEDS: FUROSEMIDE INJ 40 MG/4 ML VIAL IV PUSH (08:29)
[2021-08-07] MEDS: ISOSORBIDE MONONITRATE 30 MG TAB.ER.24H PO (08:29)
[2021-08-07] MEDS: predniSONE 10 MG TABLET PO ×2 (08:29→16:20)
[2021-08-07] MEDS: POTASSIUM CHLORIDE 20 MEQ TABLET.ER PO (08:29)
[2021-08-07] MEDS: PANTOPRAZOLE 40 MG TABLET PO ×2 (08:29→16:20)
[2021-08-07 08:30] LABS: Alanine Aminotransferase 13 U/L (4-50); Albumin Level 2.1 g/dL (3.5-5.1); Alkaline Phosphatase 134 U/L (38-126); Aspartate Amino Transferase 21 U/L (17-59); Bilirubin,Total 0.4 mg/dL (0.2-1.3); Magnesium 1.9 mg/dL (1.6-2.3); Phosphorus 2.9 mg/dL (2.5-4.5)
[2021-08-07 09:03] LABS: Hypochromasia 1+ (NORMAL); Platelet Estimate Adequate (Adequate); Poikilocytosis 1+ (NORMAL)
[2021-08-07 09:06] LABS: Schistocytes 1+ (NORMAL)
--- NOTE | 2021-08-07 09:06 | PM.PNCARD ---
Progress Note: A&P Assessment and Plan (1) Acute on chronic systolic and diastolic heart failure, NYHA class 1: Code(s): I50.43 - Acute on chronic combined systolic (congestive) and diastolic (congestive) heart failure Status: Acute Assessment and Plan: Patient has chronic heart failure, probably systolic and diastolic, with rales and edema and elevated BNP consistent with a mild exacerbation. However think the main reason for his admission was pulmonary embolus. Shift from IV furosemide to oral 40mg b.i.d. He is looking nearly euvolemic on exam Daily BMP (2) Pulmonary embolism: Code(s): I26.99 - Other pulmonary embolism without acute cor pulmonale Status: Acute Assessment and Plan: Two episodes of acute shortness of breath over the last 2 days with a pulmonary embolus noted on CT scan. Currently on heparin. Transition to DOAC? Will defer to primary service. (3) Cardiomyopathy: Code(s): I42.9 - Cardiomyopathy, unspecified Status: Acute Assessment and Plan: Patient reports his heart function is 20-28%. Echo showed LV systolic dysfunction with EF 25 - 30%, severe MR. Unable to add ARNI, ELAN-I due to relative hypotension. Start SGLT2 inhibitor today, hopefully insurance will cover Farxiga as outpatient. Will optimize medical therapy as able in the future as able with blood pressure. Consider weaning off diltiazem and using amiodarone instead or pacemaker and AV node ablation if needed for rate control. (4) Elevated troponin: Code(s): R77.8 - Other specified abnormalities of plasma proteins Status: Acute Assessment and Plan: Elevated troponin 0.3 but flat curve, no ACS. Due to PE, chronic CHF and AFib. (5) Atrial fibrillation with RVR: Code(s): I48.91 - Unspecified atrial fibrillation Status: Acute Assessment and Plan: Has AFib, unclear if persistent or paroxysmal, with a rapid ventricular rate this morning. Since he is taking metoprolol, digoxin and diltiazem I suspect he has had a difficult to control rate. Will try some IV metoprolol for HR control. Heart rate not ideally controlled with metoprolol 50mg b.i.d. Will increase to 75mg b.i.d. Has a left atrial appendage thrombus. Interesting that this would occur while he is taking Xarelto, although at a sub optimal dose of 15 mg daily (GFR here, at least, is greater than 60 and 20 mg daily would be a more appropriate dose for full anticoagulation. Perhaps a reduced dose 2nd GI bleed 6 months ago?). Currently on heparin. (6) CAD (coronary artery disease): Code(s): I25.10 - Atherosclerotic heart disease of [place] coronary artery without angina pectoris Status: Acute Assessment and Plan: Sounds like the patient has underlying CAD since he gives a history of 2 MIs. Stable. Continue atorvastatin, etc. (7) Peripheral vascular disease: Code(s): I73.9 - Peripheral vascular disease, unspecified Status: Acute Assessment and Plan: History of PCI in 2017. Diffuse vascular disease (PVD, CAD, h/o strokes). High risk of recurrent events. Subjective Date/time seen: 08/07/21 09:06 Interval history: Cardiology follow up for CHF, Afib Date of service 08/07/2021: Complaining of dizziness when he stands and ambulates. At rest he denies any symptoms. Denies chest pain, palpitations, shortness of breath. Review of Systems Constitutional: Constitutional: Reports fatigue, Reports lethargy and Reports weakness Eyes: Eyes: Reports no additional eye complaints ENT: Denies epistaxis Cardiovascular: Cardiovascular: Denies chest pain, Reports pedal edema, Reports leg edema, Reports lightheadedness, Denies palpitations, Reports dyspnea and Reports dyspnea on exertion Respiratory: Respiratory: Reports cough, Reports dyspnea and Reports dyspnea on exertion Gastrointestinal: Gastrointestinal: Reports abdominal pain, Reports melena (Sounds like lisa
[2021-08-07 09:11] LABS: Partial Thromboplastin Time > 200.0 SECONDS (22.3-36.8)
[2021-08-07] MEDS: METOPROLOL TARTRATE 50 MG TAB PO (09:13)
[2021-08-07] MEDS: MAGNESIUM SULF 1 GM/D5W 100 ML 1 GM/100 ML BAG IVPB (10:25)
--- NOTE | 2021-08-07 11:44 | PM.IMPN ---
Progress Note: A&P Assessment and Plan (1) Pulmonary embolism: Code(s): I26.99 - Other pulmonary embolism without acute cor pulmonale Status: Acute Assessment and Plan: Chest CTA shows an acute pulmonary embolus in the posterior basal segment of the left lower lobe. No evidence of right heart strain on CT though his BNP and troponin are elevated. These markers could be elevated for other etiologies. He states he was compliant with his Xarelto but it is noted to be subtherapeutic dosing (the notes from July show the dose of Xarelto 15mg BID but patient states only takes this daily). He was started on a heparin drip. Transition to Eliquis. (2) Thrombus of left atrial appendage: Code(s): I51.3 - Intracardiac thrombosis, not elsewhere classified Status: Acute Assessment and Plan: CTA chest showing a thrombus in left atrial appendage of the heart. Probably related to the AFib that occurred while taking Xarelto. Echo however makes no mention of thrombus. Change to Eliquis (3) Acute exacerbation of congestive heart failure: Code(s): I50.9 - Heart failure, unspecified Status: Acute Assessment and Plan: BNP 15764. CT scan showing moderate right pleural effusion and emphysema but no overt pulmonary edema. Unclear if pleural effusion has been evaluated but suspect related to CHF (CXR early July also showed small right pleural effusion). He did appear fluid overloaded clinically. Started on IV Lasix with clinically improvement. Echo here showing severe global LV dysfunction with EF 25-30%, moderate AI and severe MR. Renal function remaining stable. Will change to oral Lasix and follow clinically. Continue Metoprolol. Add low dose ACEI or Entresto. Will defer to Cardilogy (4) Elevated troponin: Code(s): R77.8 - Other specified abnormalities of plasma proteins Status: Acute Assessment and Plan: Troponin 0.38 on admission and has trended downward. He denies chest pain and no acute ST segment changes noted on EKG. Echo noted as above. Suspect elevated Trop related to the PE, CHF and/or AFib/RVR causing nonischemic myocardial injury. Cardiology following. Continue ASA, Lipitor, Lopressor and Imdur. (5) Severe mitral valve regurgitation: Code(s): I34.0 - Nonrheumatic mitral (valve) insufficiency Status: Acute Assessment and Plan: As above (6) Deep venous thrombosis of left peroneal vein: Code(s): I82.452 - Acute embolism and thrombosis of left peroneal vein Status: Acute Assessment and Plan: Plan is as detailed above. It is noted that the patient was taking Xarelto at home. (7) Protein calorie malnutrition: Code(s): E46 - Unspecified protein-calorie malnutrition Status: Acute Assessment and Plan: Albumin 2.1. B12/folate normal. UA negative. Continue dietary supplements. (8) Generalized weakness: Code(s): R53.1 - Weakness Status: Acute Assessment and Plan: Related to chronic illnesses, deconditioning and malnutrition that is exacerbated by current issues as above. Continue fall precautions. Ambulate with assistance. PT/OT. He may need rehab before returning home. (9) Microcytic anemia: Code(s): D50.9 - Iron deficiency anemia, unspecified Status: Acute Assessment and Plan: Patient reports having dark stools proximally 6 months ago for which he had an upper and lower endoscopy that was unremarkable per his report. Hgb was in the low 9 range early July. Iron studies consistent with iron deficiency with low TIBC related to poor oral intake. Stool for occult blood ordered. Hgb low and dropped to 7.5. Monitor closely as he is on anticoagulation. Check serial H&H (10) Peripheral vascular disease: Code(s): I73.9 - Peripheral vascular disease, unspecified Status: Acute Assessment and Plan: Patient reports pain in his legs with walking
[2021-08-07 11:48] LABS: Anion Gap 6 mmol/L (8-16); Blood Urea Nitrogen 15 mg/dL (9-20); Calcium 7.2 mg/dL (8.4-10.2); Carbon Dioxide 25 mmol/L (22-30); Chloride 101 mmol/L (98-107); Estimated CRCL calculation 63 ml/min; Estimated Glomerular Filt Rate > 60; Glucose 133 mg/dL (65-110); Potassium 4.4 mmol/L (3.4-5.0); Sodium 132 mmol/L (137-145)
[2021-08-07 13:25] LABS: Hematocrit 28.3 % (42.0-52.0); Hemoglobin 7.6 g/dL (14.0-18.0)
--- NOTE | 2021-08-07 13:34 | PC.NURSE ---
On 08/07/21, the student, [Gerry Ayala], provided care and completed 115 network disks documentation on this patient. I have reviewed the student's documentation and agree with the findings.
--- NOTE | 2021-08-07 15:11 | PCPTNOTE ---
Attempted to see pt at 1348 and again at 1501 but pt declined both times. Fist attempt pt had just finished OT and states he would like a rest break. Second attempt pt states he just used the commode and has an upset stomach. Pt was educated on benefits of PT and encouraged to participate but continued to decline.
[2021-08-07] MEDS: ASPIRIN 81 MG CHEWABLE TABLET PO (16:20)
[2021-08-07 16:41] LABS: Hematocrit 28.3 % (42.0-52.0); Hemoglobin 7.7 g/dL (14.0-18.0)
[2021-08-07 17:42] LABS: Partial Thromboplastin Time > 200.0 SECONDS (22.3-36.8)
--- NOTE | 2021-08-07 17:55 | PC.NURSE ---
Notified Dr Neal of patients PTT >200. Order to stop heparin now 17:55 and start eliquis at 21:00.
[2021-08-07] MEDS: APIXABAN 5 MG TABLET 10 MG PO (20:12)
[2021-08-07] MEDS: METOPROLOL TARTRATE 25 MG TABLET 75 MG PO (20:13)
[2021-08-08] VITALS (19 sets, daily range): BP systolic 105–133; BP diastolic 51–73; PULSE 98–126; RESP 12–26; TEMP 36.2–37.1; O2SAT 95–98
[2021-08-08 00:45] LABS: Hematocrit 25.8 % (42.0-52.0); Hemoglobin 7.4 g/dL (14.0-18.0)
[2021-08-08 05:43] LABS: Hematocrit 26.8 % (42.0-52.0); Hemoglobin 7.4 g/dL (14.0-18.0); Mean Corpuscular HGB Conc 27.6 g/dl (32-36); Mean Corpuscular Volume 68.7 fl (80-100); Mean Platelet Volume 9.3 fl (7.4-10.4); Platelet Count Result 225 k/mm3 (150-375); Red Cell Distribution Width 23.3 % (11.5-14.5); White Blood Count 9.4 K/mm3 (4.5-10.0)
[2021-08-08 05:52] LABS: Anion Gap 4 mmol/L (8-16); Blood Urea Nitrogen 18 mg/dL (9-20); Calcium 7.2 mg/dL (8.4-10.2); Carbon Dioxide 26 mmol/L (22-30); Chloride 103 mmol/L (98-107); Estimated CRCL calculation 58 ml/min; Estimated Glomerular Filt Rate > 60; Glucose 119 mg/dL (65-110); Magnesium 2.4 mg/dL (1.6-2.3); Phosphorus 3.3 mg/dL (2.5-4.5); Potassium 4.3 mmol/L (3.4-5.0); Sodium 133 mmol/L (137-145)
[2021-08-08] MEDS: SIMETHICONE 80 MG TAB.CHEW PO ×4 (08:42→21:50)
[2021-08-08] MEDS: METOPROLOL TARTRATE 25 MG TABLET 75 MG PO ×2 (08:43→21:50)
[2021-08-08] MEDS: ISOSORBIDE MONONITRATE 30 MG TAB.ER.24H PO (08:44)
[2021-08-08] MEDS: FUROSEMIDE 40 MG TABLET PO (08:44)
[2021-08-08] MEDS: PANTOPRAZOLE 40 MG TABLET PO ×2 (08:45→18:49)
[2021-08-08] MEDS: COLLAGENASE OINT 30 GM TUBE 1 APPLIC TOPICAL (08:45)
[2021-08-08] MEDS: EMPAGLIFLOZIN 10 MG TABLET PO (08:45)
[2021-08-08] MEDS: ATORVASTATIN 40 MG TABLET PO (08:45)
[2021-08-08] MEDS: DIGOXIN TAB 125 MCG TABLET PO (08:45)
[2021-08-08] MEDS: APIXABAN 5 MG TABLET 10 MG PO ×2 (08:46→21:49)
[2021-08-08] MEDS: predniSONE 10 MG TABLET PO ×2 (08:46→18:49)
[2021-08-08] MEDS: POTASSIUM CHLORIDE 20 MEQ TABLET.ER PO (08:46)
[2021-08-08] MEDS: FERROUS SULFATE 324 MG TABLET PO ×2 (08:46→18:48)
[2021-08-08] MEDS: cilostazoL 100 MG TABLET PO ×2 (08:47→18:48)
[2021-08-08] MEDS: ASPIRIN 81 MG CHEWABLE TABLET PO (08:51)
[2021-08-08] MEDS: EUCERIN CREAM 120 GM JAR 1 APPLIC TOPICAL ×2 (08:56→18:48)
--- NOTE | 2021-08-08 09:34 | PCPTNOTE ---
Patient reports he just ate breakfast and is sick to his stomach. Patient refused therapy at this time. Nursing notified of symptoms.
--- NOTE | 2021-08-08 11:25 | PC.NURSE ---
Patient PICC line Tegaderm was peeled back and PICC line exposed. Using sterile technique I cleaned the site, used glue, Replaced tegaderm. Notified [facility] nurse, calling to get a stat XRAY to check placement.
--- NOTE | 2021-08-08 11:33 | PCPTNOTE ---
Attempted to see patient for PT, patient refused. Patient reported he has been sick to his stomach and been dry heaving. RN aware.
--- NOTE | 2021-08-08 12:44 | PM.IMPN ---
Progress Note: A&P Assessment and Plan (1) Abdominal pain: Code(s): R10.9 - Unspecified abdominal pain Status: Acute Assessment and Plan: Lower abdominal pain. No buttock pain to suggest iliac disease. Will continue GasX since this seems to help. Will check KUB KUB showing large amount of colonic gas. Ileus? Doubt colonic obstruction since had colonoscopy recently. Check CT scan. Will have patient up walking in the halls. (2) Pulmonary embolism: Code(s): I26.99 - Other pulmonary embolism without acute cor pulmonale Status: Acute Assessment and Plan: Chest CTA shows an acute pulmonary embolus in the posterior basal segment of the left lower lobe. No evidence of right heart strain on CT though his BNP and troponin are elevated. These markers could be elevated for other etiologies. He states he was compliant with his Xarelto but it is noted to be subtherapeutic dosing (the notes from July show the dose of Xarelto 15mg BID but patient states only takes this daily and denied any hx of VTE). He was started on a heparin drip and transitioned to Eliquis. (3) Thrombus of left atrial appendage: Code(s): I51.3 - Intracardiac thrombosis, not elsewhere classified Status: Acute Assessment and Plan: CTA chest showing a thrombus in left atrial appendage of the heart. Probably related to the AFib that occurred while taking Xarelto. Echo however makes no mention of thrombus but not as reliable. Discussed with hematology about the subtherapeutic Xarelto. He agreed about the use of Eliquis an did recommend repeating venous doppler in 1 month. Continue Eliquis. (4) Acute exacerbation of congestive heart failure: Code(s): I50.9 - Heart failure, unspecified Status: Acute Assessment and Plan: BNP [address]48. CT scan showing moderate right pleural effusion and emphysema but no overt pulmonary edema. Unclear if pleural effusion has been evaluated but suspect related to CHF (CXR early July also showed small right pleural effusion). He did appear fluid overloaded clinically. Started on IV Lasix with clinically improvement. Echo here showing severe global LV dysfunction with EF 25-30%, moderate AI and severe MR. Renal function remaining stable. Changed to oral Lasix due to improved fluid status. Continue Metoprolol. Add low dose ACEI or Entresto? Will defer to Cardiology. (5) Elevated troponin: Code(s): R77.8 - Other specified abnormalities of plasma proteins Status: Acute Assessment and Plan: Troponin 0.38 on admission and has trended downward. He denies chest pain and no acute ST segment changes noted on EKG. Echo noted as above. Suspect elevated Trop related to the PE, CHF and/or AFib/RVR causing nonischemic myocardial injury. Cardiology following. Continue ASA, Lipitor, Lopressor and Imdur. (6) Severe mitral valve regurgitation: Code(s): I34.0 - Nonrheumatic mitral (valve) insufficiency Status: Acute Assessment and Plan: As above (7) Deep venous thrombosis of left peroneal vein: Code(s): I82.452 - Acute embolism and thrombosis of left peroneal vein Status: Acute Assessment and Plan: Plan is as detailed above. It is noted that the patient was taking subtherapeutic Xarelto dose at home. (8) Protein calorie malnutrition: Code(s): E46 - Unspecified protein-calorie malnutrition Status: Acute Assessment and Plan: Albumin 2.0. UA without protein. Continue dietary supplements. (9) Generalized weakness: Code(s): R53.1 - Weakness Status: Acute Assessment and Plan: Related to chronic illnesses, deconditioning and malnutrition that is exacerbated by current issues as above. B12/folate normal. UA negative. Continue fall precautions. Ambulate with assistance. Continue PT/OT. He may need rehab before returning home. (10) Microcytic anemia: Code(s): D50.9 - Iron defic
--- NOTE | 2021-08-08 14:03 | PM.PNCARD ---
Progress Note: A&P Assessment and Plan (1) Acute on chronic systolic and diastolic heart failure, NYHA class 1: Code(s): I50.43 - Acute on chronic combined systolic (congestive) and diastolic (congestive) heart failure Status: Acute Assessment and Plan: Patient has chronic heart failure, probably systolic and diastolic, with rales and edema and elevated BNP consistent with a mild exacerbation on admission. However think the main reason for his admission was pulmonary embolus. CHF symptoms have improved significantly. Now on oral furosemide Daily BMP (2) Pulmonary embolism: Code(s): I26.99 - Other pulmonary embolism without acute cor pulmonale Status: Acute Assessment and Plan: Acute shortness of breath, CT with evidence of pulmonary embolism. Initially on heparin but is now on Eliquis. (3) Cardiomyopathy: Code(s): I42.9 - Cardiomyopathy, unspecified Status: Acute Assessment and Plan: Patient reports his heart function is 20-28%. Echo showed LV systolic dysfunction with EF 25 - 30%, severe MR. Initially unable to add ARNI, ELAN-I due to relative hypotension...better now. Will start low dose Entresto. Started SGLT2 inhibitor, hopefully insurance will cover [facility] as outpatient. Will continue to optimize medical therapy as able with BP and renal function. (4) Elevated troponin: Code(s): R77.8 - Other specified abnormalities of plasma proteins Status: Acute Assessment and Plan: Elevated troponin 0.3 but flat curve, no ACS. Due to PE, chronic CHF and AFib. (5) Atrial fibrillation with RVR: Code(s): I48.91 - Unspecified atrial fibrillation Status: Acute Assessment and Plan: Has AFib, unclear if persistent or paroxysmal, with a rapid ventricular rate this morning. Since he is taking metoprolol, digoxin and diltiazem I suspect he has had a difficult to control rate. Will try some IV metoprolol for HR control. Heart rate not ideally controlled with metoprolol 50mg b.i.d. Will increase to 75mg b.i.d. Has a left atrial appendage thrombus. Interesting that this would occur while he is taking Xarelto, although at a sub optimal dose of 15 mg daily (GFR here, at least, is greater than 60 and 20 mg daily would be a more appropriate dose for full anticoagulation. Perhaps a reduced dose 2nd GI bleed 6 months ago?). On Eliquis now (6) CAD (coronary artery disease): Code(s): I25.10 - Atherosclerotic heart disease of [id number] coronary artery without angina pectoris Status: Acute Assessment and Plan: Sounds like the patient has underlying CAD since he gives a history of 2 MIs. Stable. Continue atorvastatin, etc. (7) Peripheral vascular disease: Code(s): I73.9 - Peripheral vascular disease, unspecified Status: Acute Assessment and Plan: History of PCI in 2017. Diffuse vascular disease (PVD, CAD, h/o strokes). High risk of recurrent events. Subjective Date/time seen: 08/08/21 14:03 Interval history: Cardiology follow up for CHF, Afib Date of service 08/07/2021: Complaining of dizziness when he stands and ambulates. At rest he denies any symptoms. Denies chest pain, palpitations, shortness of breath. Date of service 08/08/2021: Complaining of lower abdominal pain today. Swelling in legs/feet has improved. In Afib with better rate control today. some NSVT noted on telemetry Review of Systems Constitutional: Constitutional: Reports fatigue, Reports lethargy and Reports weakness Eyes: Eyes: Reports no additional eye complaints ENT: Denies epistaxis Cardiovascular: Cardiovascular: Denies chest pain, Reports pedal edema, Reports leg edema, Reports lightheadedness, Denies palpitations, Reports dyspnea and Reports dyspnea on exertion Respiratory: Respiratory: Reports cough, Reports dyspnea and Reports dyspnea on exertion Gastrointestinal: Gastrointestinal: Reports abdominal pain, Repor
[2021-08-08] MEDS: IRON SUCROSE COMPLEX 100 MG in SODIUM CHLORIDE 0.9% IV 50 ML 220 MG IVPB (14:39)
--- NOTE | 2021-08-08 15:21 | PCOTNOTE ---
On 08/08/21, the student, [ Louise SINGH], provided care and completed [facility] documentation on this patient. I have reviewed the student's documentation and agree with the findings.
[2021-08-08] MEDS: SACUBITRIL/VALSARTAN 24-26 MG TABLET 1 TAB PO (21:50)
[2021-08-08] MEDS: HYDROcodone/acetaminophen (*CRX) 5-325 MG TABLET 1 TAB PO (21:58)
[2021-08-09] VITALS (22 sets, daily range): BP systolic 83–133; BP diastolic 33–105; PULSE 78–115; RESP 14–20; TEMP 36.4–37.2; O2SAT 97–100
[2021-08-09 07:50] LABS: Basophils Percent Auto 0.2 % (0.2-1.2); Eosinophils Percent Auto 0.1 % (0-4.4); Hematocrit 30.3 % (42.0-52.0); Hemoglobin 8.2 g/dL (14.0-18.0); Immature Granulocyte Absolute 0.07 K/mm3 (0.00-0.031); Immature Granulocyte Percent A 0.7 % (0-0.5); Lymphocytes Absolute Auto 1.67 K/mm3 (0.9-3.2); Lymphocytes Percent Auto 16.8 % (18.3-44.2); Mean Corpuscular HGB Conc 27.1 g/dl (32-36); Mean Corpuscular Hemoglobin 19.1 pg (26-34); Mean Corpuscular Volume 70.6 fl (80-100); Mean Platelet Volume 9.7 fl (7.4-10.4); Monocytes Absolute Auto 0.8 K/mm3 (0.1-0.6); Monocytes Percent Auto 7.6 % (2.6-8.5); Neutrophils Absolute Auto 7.4 K/mm3 (1.3-6.7); Neutrophils Percent Auto 74.6 % (45.5-73.1); Nucleated Red Blood Cells Perc 0.2 % (0.0-0.2); Platelet Count Result 261 k/mm3 (150-375); Red Blood Count 4.29 M/mm3 (4.6-6.20); Red Cell Distribution Width 23.9 % (11.5-14.5)
[2021-08-09 08:09] LABS: Alanine Aminotransferase 14 U/L (4-50); Albumin Level 2.4 g/dL (3.5-5.1); Alkaline Phosphatase 138 U/L (38-126); Anion Gap 4 mmol/L (8-16); Aspartate Amino Transferase 28 U/L (17-59); Bilirubin,Total 0.6 mg/dL (0.2-1.3); Blood Urea Nitrogen 18 mg/dL (9-20); Calcium 7.5 mg/dL (8.4-10.2); Carbon Dioxide 27 mmol/L (22-30); Chloride 100 mmol/L (98-107); Estimated CRCL calculation 63 ml/min; Estimated Glomerular Filt Rate > 60; Glucose 63 mg/dL (65-110); Magnesium 2.2 mg/dL (1.6-2.3); Potassium 4.4 mmol/L (3.4-5.0); Sodium 131 mmol/L (137-145)
[2021-08-09] MEDS: FERROUS SULFATE 324 MG TABLET PO ×2 (08:32→16:39)
[2021-08-09] MEDS: SIMETHICONE 80 MG TAB.CHEW PO ×4 (08:33→20:09)
[2021-08-09] MEDS: SACUBITRIL/VALSARTAN 24-26 MG TABLET 1 TAB PO (08:33)
[2021-08-09] MEDS: POTASSIUM CHLORIDE 20 MEQ TABLET.ER PO (08:35)
[2021-08-09] MEDS: EMPAGLIFLOZIN 10 MG TABLET PO (08:35)
[2021-08-09] MEDS: PANTOPRAZOLE 40 MG TABLET PO ×2 (08:35→16:37)
[2021-08-09] MEDS: cilostazoL 100 MG TABLET PO ×2 (08:35→16:38)
[2021-08-09] MEDS: COLLAGENASE OINT 30 GM TUBE 1 APPLIC TOPICAL (08:36)
[2021-08-09] MEDS: predniSONE 10 MG TABLET PO ×2 (08:36→16:38)
[2021-08-09] MEDS: APIXABAN 5 MG TABLET 10 MG PO ×2 (08:36→20:00)
[2021-08-09] MEDS: EUCERIN CREAM 120 GM JAR 1 APPLIC TOPICAL ×2 (08:37→16:38)
[2021-08-09] MEDS: ATORVASTATIN 40 MG TABLET PO (08:37)
[2021-08-09] MEDS: ASPIRIN 81 MG CHEWABLE TABLET PO (08:39)
[2021-08-09] MEDS: IRON SUCROSE COMPLEX 100 MG in SODIUM CHLORIDE 0.9% IV 50 ML 220 MG IVPB (08:42)
[2021-08-09 08:46] LABS: Hypochromasia 1+ (NORMAL); Microcytosis 1+ (NORMAL); Platelet Estimate Adequate (Adequate)
[2021-08-09] MEDS: FUROSEMIDE 40 MG TABLET PO (09:52)
[2021-08-09] MEDS: METOPROLOL TARTRATE 25 MG TABLET 75 MG PO ×2 (09:52→20:08)
--- NOTE | 2021-08-09 10:17 | PM.IMPN ---
Progress Note: A&P Assessment and Plan (1) Abdominal pain: Code(s): R10.9 - Unspecified abdominal pain Status: Acute Assessment and Plan: Probable chronic ischemic bowel disease. Will get GI evaluation liquid diet for now (2) Pulmonary embolism: Code(s): I26.99 - Other pulmonary embolism without acute cor pulmonale Status: Acute Assessment and Plan: Chest CTA shows an acute pulmonary embolus in the posterior basal segment of the left lower lobe. Patient received heparin switch it to Eliquis at home patient was on Xarelto at a dose of 15 mg p.o. daily it was considered suboptimal but the dose was decreased probably because of the recent GI bleed. (3) Thrombus of left atrial appendage: Code(s): I51.3 - Intracardiac thrombosis, not elsewhere classified Status: Acute Assessment and Plan: CTA chest showing a thrombus in left atrial appendage of the heart. Probably related to the AFib that occurred while taking Xarelto. Echo however makes no mention of thrombus but not as reliable. As per micro L discussed with with hematology about the subtherapeutic Xarelto. He agreed about the use of Eliquis an did recommend repeating venous doppler in 1 month. Continue Eliquis. (4) Acute exacerbation of congestive heart failure: Code(s): I50.9 - Heart failure, unspecified Status: Acute Assessment and Plan: BMP was elevated CT scan shows moderate pleural effusion patient treated with diuretics cardiology following (5) Elevated troponin: Code(s): R77.8 - Other specified abnormalities of plasma proteins Status: Acute Assessment and Plan: Most likely related to NSTEMI type 2 secondary to demand ischemia secondary to AFib with RVR and PE Cardiology following. Continue ASA, Lipitor, Lopressor and Imdur. (6) Severe mitral valve regurgitation: Code(s): I34.0 - Nonrheumatic mitral (valve) insufficiency Status: Acute Assessment and Plan: Follow-up with cardiology as outpatient (7) Deep venous thrombosis of left peroneal vein: Code(s): I82.452 - Acute embolism and thrombosis of left peroneal vein Status: Acute Assessment and Plan: Plan is as detailed above. It is noted that the patient was taking subtherapeutic Xarelto dose at home patient will be discharged on Eliquis repeat Doppler in 1 month. (8) Protein calorie malnutrition: Code(s): E46 - Unspecified protein-calorie malnutrition Status: Acute Assessment and Plan: Severe protein calorie malnutrition dietitian consult (9) Generalized weakness: Code(s): R53.1 - Weakness Status: Acute Assessment and Plan: May need rehab before discharge home. (10) Microcytic anemia: Code(s): D50.9 - Iron deficiency anemia, unspecified Status: Acute Assessment and Plan: Treated with IV iron patient had upper and lower endoscopy no significant finding the records (11) Peripheral vascular disease: Code(s): I73.9 - Peripheral vascular disease, unspecified Status: Acute Assessment and Plan: Patient reports pain in his legs with walking although he has been blaming that on his wounds. He has a hx of PAD. Arterial LE doppler showing mildly decreased right ANDREIA and decreased left thigh pressures consistent with arterial occlusive disease. Continue ASA, Pletal and Lipitor. Follow-up with vascular surgeon as outpatient (12) Paroxysmal atrial fibrillation: Code(s): I48.0 - Paroxysmal atrial fibrillation Status: Acute Assessment and Plan: Continue Eliquis beta nav cardiology following. (13) Hypertension: Code(s): I10 - Essential (primary) hypertension Status: Chronic Assessment and Plan: Improved continue current treatment (14) Hyperlipidemia: Code(s): E78.5 - Hyperlipidemia, unspecified Status: Chronic Assess
--- NOTE | 2021-08-09 10:58 | PM.PNCARD ---
Progress Note: A&P Assessment and Plan (1) Acute on chronic systolic and diastolic heart failure, NYHA class 1: Code(s): I50.43 - Acute on chronic combined systolic (congestive) and diastolic (congestive) heart failure Status: Acute Assessment and Plan: Patient has chronic heart failure, probably systolic and diastolic, with rales and edema and elevated BNP consistent with a mild exacerbation on admission. However think the main reason for his admission was pulmonary embolus. CHF symptoms have improved significantly. Continue oral furosemide 40 mg daily. Imdur discontinued due to relative hypotension. Daily BMP monitor electrolytes. (2) Pulmonary embolism: Code(s): I26.99 - Other pulmonary embolism without acute cor pulmonale Status: Acute Assessment and Plan: Acute shortness of breath, CT with evidence of pulmonary embolism. Initially on heparin but is now on Eliquis. Highly concerning given evidence of venous and arterial thrombosis simultaneously. Consider Hematology consultation. (3) Cardiomyopathy: Code(s): I42.9 - Cardiomyopathy, unspecified Status: Acute Assessment and Plan: Patient reports his heart function is 20-28%. Echo showed LV systolic dysfunction with EF 25 - 30%, severe MR. Initially unable to add ARNI, ELAN-I due to relative hypotension...better now. BP low this morning, received Entresto. Imdur discontinued. Continue if BP stable. Started SGLT2 inhibitor, hopefully insurance will cover [facility] as outpatient. Will continue to optimize medical therapy as able with BP and renal function. (4) Elevated troponin: Code(s): R77.8 - Other specified abnormalities of plasma proteins Status: Acute Assessment and Plan: Elevated troponin 0.3 but flat curve, no ACS or plaque rupture, type 2 infarction. Due to PE, chronic CHF and AFib. (5) Atrial fibrillation with RVR: Code(s): I48.91 - Unspecified atrial fibrillation Status: Acute Assessment and Plan: Has AFib, unclear if persistent or paroxysmal Since he is taking metoprolol, digoxin and diltiazem I suspect he has had a difficult to control rate. Heart rate better controlled Heart rate not ideally controlled with metoprolol 50mg b.i.d. Will increase to 75mg b.i.d. Has a left atrial appendage thrombus. Highly unusual as he claims he was compliant with Xarelto. On Eliquis now PE/DVT dosing. (6) CAD (coronary artery disease): Code(s): I25.10 - Atherosclerotic heart disease of [place] coronary artery without angina pectoris Status: Acute Assessment and Plan: Sounds like the patient has underlying CAD since he gives a history of 2 MIs. Stable. Continue atorvastatin, metoprolol, ASA 81 mg daily for now. Monitor for bleeding in conjunction with systemic anticoagulation. (7) Peripheral vascular disease: Code(s): I73.9 - Peripheral vascular disease, unspecified Status: Acute Assessment and Plan: History of PCI in 2017. Diffuse vascular disease (PVD, CAD, h/o strokes). High risk of recurrent events. Statin. Subjective Date/time seen: Date of service: 08/09/21 10:58 Follow-up for acute on chronic systolic heart failure, pulmonary embolism, cardiomyopathy, atrial fibrillation Interval history: Cardiology follow up for CHF, Afib Notes abdominal discomfort once again worse after having a bowel movement this morning. Feels a Little nauseous did not eat this morning. No emesis. He states he had a good bowel movement earlier this morning. Feels weak. Lightheaded when he stands up. Denies chest pain or significant shortness of breath lying in bed. Does not feel all that well in general. Review of Systems Constitutional: Constitutional: Reports fatigue, Reports lethargy and Reports weakness Eyes: Eyes: Reports no additional eye complaints ENT: Denies epistaxis Cardiovascular: Cardiovascular: Denies chest pain, Reports ped
[2021-08-09] MEDS: CALCIUM CARBONATE (TUMS) 500 MG (200 MG ELEMENTAL) PO (11:25)
--- NOTE | 2021-08-09 11:30 | PC.NURSE ---
Pt refusing to where heart monitor at this time. Pt took it off himself, handed it to the patient managed care liaison, and stated he was done wearing this son [employer] . Education given regarding the importance of monitoring his HR and rhythm. Pt understands yet still refuses.
[2021-08-09] MEDS: HYDROcodone/acetaminophen (*CRX) 5-325 MG TABLET 1 TAB PO ×2 (12:28→16:46)
[2021-08-09] MEDS: BELLADONNA ALK/PHENOB ELIX 10 ML, MAG HYDROX/ALUMINUM HYD/SIMETH 30 ML, LIDOCAINE HCL 2... PO ×2 (12:31→18:20)
--- NOTE | 2021-08-09 14:07 | PC.NURSE ---
Monitor back on patient at this time
--- NOTE | 2021-08-09 15:24 | PCOTNOTE ---
Attempted to see patient for OT, patient declined all ADLs and UB exercises or any requests to participate in OT. Patient reports being sick all morning and wanting to sleep. Will continue plan of care tomorrow, 08/10/21.
--- NOTE | 2021-08-09 15:34 | PCPTNOTE ---
Pt is being discharged from skilled PT at this time due to multiple pt refusals, 3 days in a row.
--- NOTE | 2021-08-09 15:47 | PCPTNOTE ---
Patient refused treatment this session for the third time stating he wasn't going to get up was up all night moving around and when he moves around he becomes nauseous again. Notified nursing on patient being discharged for refusals and told treating therapist.
[2021-08-09] MEDS: SODIUM CHLORIDE 0.9% IV 500 ML 999 ML IV CONT (16:30)
--- NOTE | 2021-08-09 18:02 | ECG_ITS ---
Measurements Intervals [place] Rate: 59 P: 31 SC: 172 QRS: 28 QRSD: 97 T: 36 QT: 379 QTc: 378 Interpretive Statements SINUS BRADYCARDIA BASELINE ARTIFACT- I, II, III, AVR BORDERLINE ECG Electronically Signed On 08-10-2021 7:01:41 OCCUPATIONAL THERAPY ASST by Jason Kruse D.O.
--- NOTE | 2021-08-09 18:46 | ECG_ITS ---
Measurements Intervals [place] Rate: 92 P: MA: 0 QRS: -72 QRSD: 155 T: 64 QT: 398 QTc: 493 Interpretive Statements ATRIAL FIBRILLATION VENTRICULAR PREMATURE COMPLEXES RIGHT BUNDLE BRANCH BLOCK INFERIOR INFARCT, AGE INDETERMINATE ABNORMAL ECG Electronically Signed On 08-14-2021 8:21:01 [employer] by Jason Kruse D.O.
[2021-08-09 19:02] LABS: Troponin I 0.078 ng/mL (0.000-0.034)
[2021-08-09] MEDS: MORPHINE SULFATE (*CRX) 4 MG/ML INJ IV PUSH (19:53)
[2021-08-09] MEDS: ALBUMIN HUMAN 25% 25 GM/100 ML 100 ML IVPB (20:13)
[2021-08-10] VITALS (16 sets, daily range): BP systolic 102–134; BP diastolic 48–91; PULSE 87–120; RESP 14–26; TEMP 36.1–37; O2SAT 92–99
[2021-08-10] MEDS: HYOSCYAMINE SULFATE 0.0625 MG TABLET PO (00:39)
[2021-08-10] MEDS: HYDROcodone/acetaminophen (*CRX) 5-325 MG TABLET 1 TAB PO ×3 (00:47→20:59)
[2021-08-10] MEDS: ONDANSETRON INJ 4 MG/2 ML VIAL IV PUSH ×3 (03:50→20:29)
[2021-08-10] MEDS: MORPHINE SULFATE (*CRX) 4 MG/ML INJ IV PUSH ×3 (03:51→23:55)
[2021-08-10] MEDS: ASPIRIN 81 MG CHEWABLE TABLET PO (08:48)
[2021-08-10] MEDS: FERROUS SULFATE 324 MG TABLET PO ×2 (08:50→16:52)
[2021-08-10] MEDS: cilostazoL 100 MG TABLET PO ×2 (08:50→16:51)
[2021-08-10] MEDS: POTASSIUM CHLORIDE 20 MEQ TABLET.ER PO (08:50)
[2021-08-10] MEDS: predniSONE 10 MG TABLET PO ×2 (08:51→16:52)
[2021-08-10] MEDS: COLLAGENASE OINT 30 GM TUBE 1 APPLIC TOPICAL (08:51)
[2021-08-10] MEDS: DIGOXIN TAB 125 MCG TABLET PO (08:51)
[2021-08-10] MEDS: ATORVASTATIN 40 MG TABLET PO (08:51)
[2021-08-10] MEDS: APIXABAN 5 MG TABLET 10 MG PO ×2 (08:51→20:20)
[2021-08-10] MEDS: METOPROLOL TARTRATE 25 MG TABLET 75 MG PO ×2 (08:52→20:20)
[2021-08-10] MEDS: EMPAGLIFLOZIN 10 MG TABLET PO (08:52)
[2021-08-10] MEDS: FUROSEMIDE 40 MG TABLET PO (08:53)
[2021-08-10] MEDS: PANTOPRAZOLE 40 MG TABLET PO ×2 (08:53→16:52)
[2021-08-10] MEDS: EUCERIN CREAM 120 GM JAR 1 APPLIC TOPICAL (08:53)
[2021-08-10] MEDS: IRON SUCROSE COMPLEX 100 MG in SODIUM CHLORIDE 0.9% IV 50 ML 220 MG IVPB (09:11)
--- NOTE | 2021-08-10 11:29 | PM.IMPN ---
Progress Note: A&P Assessment and Plan (1) Abdominal pain: Code(s): R10.9 - Unspecified abdominal pain Status: Acute Assessment and Plan: Probable gastritis and peptic ulcer disease versus bowel claudication reviewed CT scan of the abdomen concern for atherosclerotic disease. GI evaluation pending (2) Pulmonary embolism: Code(s): I26.99 - Other pulmonary embolism without acute cor pulmonale Status: Acute Assessment and Plan: Chest CTA shows an acute pulmonary embolus in the posterior basal segment of the left lower lobe. Patient received heparin switch it to Eliquis at home patient was on Xarelto at a dose of 15 mg p.o. daily it was considered suboptimal but the dose was decreased probably because of the recent GI bleed. (3) Thrombus of left atrial appendage: Code(s): I51.3 - Intracardiac thrombosis, not elsewhere classified Status: Acute Assessment and Plan: CTA chest showing a thrombus in left atrial appendage of the heart. Probably related to the AFib that occurred while taking Xarelto. Echo however makes no mention of thrombus but not as reliable. Hematology agreed about the use of Eliquis an did recommend repeating venous doppler in 1 month. Continue Eliquis. (4) Acute exacerbation of congestive heart failure: Code(s): I50.9 - Heart failure, unspecified Status: Acute Assessment and Plan: BMP was elevated CT scan shows moderate pleural effusion patient treated with diuretics cardiology following (5) Elevated troponin: Code(s): R77.8 - Other specified abnormalities of plasma proteins Status: Acute Assessment and Plan: Most likely related to NSTEMI type 2 secondary to demand ischemia secondary to AFib with RVR and PE Cardiology following. Continue ASA, Lipitor, Lopressor and Imdur. (6) Severe mitral valve regurgitation: Code(s): I34.0 - Nonrheumatic mitral (valve) insufficiency Status: Acute Assessment and Plan: Follow-up with cardiology as outpatient (7) Deep venous thrombosis of left peroneal vein: Code(s): I82.452 - Acute embolism and thrombosis of left peroneal vein Status: Acute Assessment and Plan: Plan is as detailed above. It is noted that the patient was taking subtherapeutic Xarelto dose at home patient will be discharged on Eliquis repeat Doppler in 1 month. (8) Protein calorie malnutrition: Code(s): E46 - Unspecified protein-calorie malnutrition Status: Acute Assessment and Plan: Severe protein calorie malnutrition dietitian consult (9) Generalized weakness: Code(s): R53.1 - Weakness Status: Acute Assessment and Plan: May need rehab before discharge home. (10) Microcytic anemia: Code(s): D50.9 - Iron deficiency anemia, unspecified Status: Acute Assessment and Plan: Treated with IV iron patient had upper and lower endoscopy no significant finding the records (11) Peripheral vascular disease: Code(s): I73.9 - Peripheral vascular disease, unspecified Status: Acute Assessment and Plan: Patient reports pain in his legs with walking although he has been blaming that on his wounds. He has a hx of PAD. Arterial LE doppler showing mildly decreased right ANDREIA and decreased left thigh pressures consistent with arterial occlusive disease. Continue ASA, Pletal and Lipitor. Follow-up with vascular surgeon as outpatient (12) Paroxysmal atrial fibrillation: Code(s): I48.0 - Paroxysmal atrial fibrillation Status: Acute Assessment and Plan: Continue Eliquis beta nav cardiology following. (13) Hypertension: Code(s): I10 - Essential (primary) hypertension Status: Chronic Assessment and Plan: Improved continue current treatment (14) Hyperlipidemia: Code(s): E78.5 - Hyperlipidemia, unspecified Status: Chronic As
[2021-08-10 12:41] LABS: Basophils Percent Auto 0.1 % (0.2-1.2); Hemoglobin 9.1 g/dL (14.0-18.0); Immature Granulocyte Absolute 0.16 K/mm3 (0.00-0.031); Immature Granulocyte Percent A 0.9 % (0-0.5); Lymphocytes Absolute Auto 2.03 K/mm3 (0.9-3.2); Lymphocytes Percent Auto 11.1 % (18.3-44.2); Mean Corpuscular HGB Conc 26.8 g/dl (32-36); Mean Corpuscular Volume 71.1 fl (80-100); Mean Platelet Volume 9.9 fl (7.4-10.4); Monocytes Absolute Auto 1.1 K/mm3 (0.1-0.6); Monocytes Percent Auto 5.7 % (2.6-8.5); Neutrophils Absolute Auto 15.1 K/mm3 (1.3-6.7); Neutrophils Percent Auto 82.2 % (45.5-73.1); Nucleated Red Blood Cells Absolute Auto 0.1 K/mm3 (0.0-0.012); Nucleated Red Blood Cells Perc 0.4 % (0.0-0.2); Platelet Count Result 331 k/mm3 (150-375); Red Blood Count 4.78 M/mm3 (4.6-6.20); Red Cell Distribution Width 24.3 % (11.5-14.5); White Blood Count 18.3 K/mm3 (4.5-10.0)
[2021-08-10 13:09] LABS: Albumin Level 2.7 g/dL (3.5-5.1); Alkaline Phosphatase 138 U/L (38-126); Anion Gap 10 mmol/L (8-16); Aspartate Amino Transferase 22 U/L (17-59); Bilirubin,Total 0.7 mg/dL (0.2-1.3); Blood Urea Nitrogen 19 mg/dL (9-20); Calcium 7.7 mg/dL (8.4-10.2); Carbon Dioxide 21 mmol/L (22-30); Chloride 101 mmol/L (98-107); Estimated CRCL calculation 53 ml/min; Estimated Glomerular Filt Rate 60; Glucose 102 mg/dL (65-110); Potassium 4.4 mmol/L (3.4-5.0); Sodium 132 mmol/L (137-145)
[2021-08-10 13:10] LABS: Digoxin 1.1 ng/mL (0.8-2.0)
[2021-08-10 13:15] LABS: Alanine Aminotransferase 23 U/L (4-50)
[2021-08-10 13:30] LABS: Platelet Estimate Adequate (Adequate); Poikilocytosis 2+ (NORMAL)
[2021-08-10 13:31] LABS: Burr Cells 1+ (NORMAL); Schistocytes 1+ (NORMAL)
--- NOTE | 2021-08-10 14:27 | PCOTNOTE ---
Attempted to see pt. for therapy, in room requesting therapy did not work with the pt. today due to pts pain with bowel obstruction. adamant on leaving pt. resting to avoid inflicting pain and causing him to yell out, verbalizing to return tomorrow once determined what is occurring. Due to very limited participation in prior sessions with refusals, recommend decreasing frequency to 2/3 days for time being until pt. can participate more. Expect improvement with OT post follow up with MD and RN, small bowel obstruction.
--- NOTE | 2021-08-10 14:30 | PM.PNCARD ---
Progress Note: A&P Assessment and Plan (1) Acute on chronic systolic and diastolic heart failure, NYHA class 1: Code(s): I50.43 - Acute on chronic combined systolic (congestive) and diastolic (congestive) heart failure Status: Acute Assessment and Plan: Patient has chronic heart failure, probably systolic and diastolic, with rales and edema and elevated BNP consistent with a mild exacerbation on admission. However think the main reason for his admission was pulmonary embolus. CHF symptoms have improved significantly and he appears euvolemic. Continue oral furosemide 40 mg daily. Imdur discontinued due to relative hypotension. Entresto on hold. Daily BMP monitor electrolytes. (2) Pulmonary embolism: Code(s): I26.99 - Other pulmonary embolism without acute cor pulmonale Status: Acute Assessment and Plan: Acute shortness of breath, CT with evidence of pulmonary embolism. Continue Eliquis monitor for bleeding, follow H/H. Highly concerning given evidence of venous and arterial thrombosis simultaneously. Consider Hematology consultation. (3) Cardiomyopathy: Code(s): I42.9 - Cardiomyopathy, unspecified Status: Acute Assessment and Plan: Patient reports his heart function is 20-28%. Echo showed LV systolic dysfunction with EF 25 - 30%, severe MR. Initially unable to add ARNI, ELAN-I due to relative hypotension...better now. BP low this morning, received Entresto. Imdur discontinued. Continue if BP stable. Started SGLT2 inhibitor, [facility] Will continue to optimize medical therapy as able with BP and renal function. (4) Elevated troponin: Code(s): R77.8 - Other specified abnormalities of plasma proteins Status: Acute Assessment and Plan: Elevated troponin 0.3 but flat curve, no ACS or plaque rupture, type 2 infarction. Due to PE, chronic CHF and AFib. (5) Atrial fibrillation with RVR: Code(s): I48.91 - Unspecified atrial fibrillation Status: Acute Assessment and Plan: Paroxysmal atrial fibrillation. Heart rate fair control, continue Metoprolol 75mg b.i.d. Change to Toprol XL once stabilized. Has a left atrial appendage thrombus. Highly unusual as he claims he was compliant with Xarelto. On Eliquis now PE/DVT dosing. (6) CAD (coronary artery disease): Code(s): I25.10 - Atherosclerotic heart disease of [place] coronary artery without angina pectoris Status: Acute Assessment and Plan: Probable CAD given reported history of 2 prior MIs. Stable. Continue atorvastatin, metoprolol, ASA 81 mg daily for now. Monitor for bleeding in conjunction with systemic anticoagulation. Check lipid panel. Goal LDL less than 70. Recommendations to follow. (7) Peripheral vascular disease: Code(s): I73.9 - Peripheral vascular disease, unspecified Status: Acute Assessment and Plan: History of PCI in 2017. Diffuse vascular disease (PVD, CAD, h/o strokes). High risk of recurrent events. Continue Statin. (8) Severe mitral valve regurgitation: Code(s): I34.0 - Nonrheumatic mitral (valve) insufficiency Status: Acute Assessment and Plan: This will need to be further workup as an outpatient. (9) Microcytic anemia: Code(s): D50.9 - Iron deficiency anemia, unspecified Status: Acute Assessment and Plan: Follow H&H. Stable thus far. Monitor for bleeding. Subjective Date/time seen: Date of service: 08/10/21 14:30 Interval history: Cardiology follow up for CHF, Afib Denies abdominal pain. No chest pain or shortness of breath. States he feels better in this regard but feels quite weird today feels like he has to fall asleep but is fighting it and wants to stay awake. He attributes this to medications he received earlier this morning or overnight for pain. Atrial fibrillation noted on telemetry. Review of Systems Review of S
[2021-08-10] MEDS: SIMETHICONE 80 MG TAB.CHEW PO (20:21)
[2021-08-11] VITALS (56 sets, daily range): BP systolic 61–101; BP diastolic 43–62; PULSE 66–141; RESP 16–25; TEMP 31.5–37; O2SAT 56–64; BMI 21.0
--- NOTE | 2021-08-11 | ECHOL_ITS ---
Patient Info Name: Adrian Dwyer Age: 65 years : 1955 Gender: Male Ht: 72 in Wt: 155 lbs BSA: 1.88 m2 HR: 79 bpm BP: 92 / 62 mmHg Heart Rhythm: Atrial Fibrillation Technical Quality: Good Exam Date: 08/11/2021 9:36 AM Exam Location: [facility] Pulmonary Exam Room: ICU4 Patient Status: Inpatient Admit Date: 08/06/2021 Staff Ordering Physician: Stuart Lechuga MD Hearing Care Professional: Nancy Whittaker RDCS Attending Provider: Hank Neal MD Exam Type: CA echo limited Study Info Indications - HX/O PULMONARY EMBOLISM EVAL RV/LV FXN Limited two-dimensional transthoracic echocardiogram is performed. Summary 1. Left ventricular chamber dimension is moderately enlarged. 2. Left ventricular systolic function is severely reduced, estimated at 20-25%. 3. There is mildly increased left ventricular wall thickness. 4. The left ventricular diastolic function is indeterminate. 5. Right ventricular chamber dimension is normal. 6. Right ventricular systolic function is reduced. 7. Left atrial chamber dimension is moderately enlarged. 8. Right atrial chamber dimension is mildly enlarged. 9. There is mild tricuspid valve regurgitation. 10. No pulmonary hypertension, estimated pulmonary arterial systolic pressure is 27 mmHg. Left Ventricle Left ventricular chamber dimension is moderately enlarged. Left ventricular systolic function is severely reduced, estimated at 20-25%. There is mildly increased left ventricular wall thickness. The left ventricular diastolic function is indeterminate. Right Ventricle Right ventricular chamber dimension is normal. Right ventricular systolic function is reduced. Left Atria Left atrial chamber dimension is moderately enlarged. Right Atria Right atrial chamber dimension is mildly enlarged. Atrial Septum Intact interatrial septum visualized by Doppler imaging. Aortic Valve The aortic valve is not well visualized. Pulmonic Valve The pulmonic valve is not well visualized. Mitral Valve The mitral valve has thickened leaflets. Tricuspid Valve The tricuspid valve leaflets are normal. There is mild tricuspid valve regurgitation. No pulmonary hypertension, estimated pulmonary arterial systolic pressure is 27 mmHg. Pericardium/Pleural The pericardium appears normal. There is no pericardial effusion. Inferior Vena Cava Normal inferior vena cava with >50% collapse upon inspiration consistent with elevated right atrial pressure, 10 mmHg. Aorta The aortic root size at the sinus of Valsalva is normal. Mitral Valve Name Value Normal MV Doppler MV Decel Kendall 559 cm/s2 MV PHT 56 ms MV Area (PHT) 3.9 cm2 4.0-5.0 MV Regurgitation Doppler MR Peak Gradient 93 mmHg MV Diastolic Function MV E Peak Velocity 107 cm/s MV A Peak Velocity 4 cm/s MV E/A 29.0 MV Decel Time 192 ms
[2021-08-11 03:31] LABS: Glucose Point of Care 441 mg/dl (65-105)
[2021-08-11 03:31] LABS: Glucose Point of Care < 20 mg/dl (65-105)
[2021-08-11 03:31] LABS: Glucose Point of Care < 20 mg/dl (65-105)
[2021-08-11 03:31] LABS: Glucose Point of Care < 20 mg/dl (65-105)
[2021-08-11 04:01] LABS: Base Excess ABG -21.9 mEq/l (+/-2.0); Carboxyhemoglobin 0.1 % THb (0-2.0); Fractional Inspired Oxygen 100 %; HCO3 ABG 7.9 mEq/l (22.0-26.0); Methemoglobin ABG 0.9 %THb (0-1.5); Oxygen Content ABG 12.5 %vol (16.0-22.0); Oxygen Saturation ABG 98.8 % (95.0-100.0); Oxyhemoglobin 97.1 % THb (90.0-100.0); PCO2 ABG 32.8 mmHg (35.0-45.0); PO2 ABG 207.2 mmHg (80.0-100.0); PO2 FiO2 Ratio Arterial Blood 2.07 %; Reduced Hemoglobin 1.9 %THb (0-5.0); Total Hemoglobin 8.8 g/dL (12.0-18.0)
[2021-08-11 04:05] LABS: Device VENTILATOR; Modified Allen's Test Unable to perform; Site Drawn LEFT RADIAL; pH ABG 7.001 (7.350-7.450)
[2021-08-11 04:06] LABS: Arterial Blood Gas PEEP 5 cmH2O; Arterial Blood Gas Vent Mode CMV; Arterial Blood Gas Ventilator rate 18 /MIN
[2021-08-11 04:07] LABS: Arterial Blood Gas Tidal Volume 450 ml
[2021-08-11 04:40] LABS: Hematocrit 31.9 % (42.0-52.0); Hemoglobin 7.6 g/dL (14.0-18.0); Mean Corpuscular HGB Conc 23.8 g/dl (32-36); Mean Corpuscular Hemoglobin 19.7 pg (26-34); Mean Corpuscular Volume 82.6 fl (80-100); Mean Platelet Volume 10.5 fl (7.4-10.4); Platelet Count Result 254 k/mm3 (150-375); Red Blood Count 3.86 M/mm3 (4.6-6.20); Red Cell Distribution Width 25.2 % (11.5-14.5); White Blood Count 18.6 K/mm3 (4.5-10.0)
[2021-08-11] MEDS: SODIUM BICARBONATE 8.4% 50 MEQ/50 ML SYRINGE 100 MEQ IV PUSH ×2 (04:44→08:44)
[2021-08-11] MEDS: NOREPINEPHRINE 8 MG/D5W 250 ML 8 MG/250 ML BAG 56.25 MG IV CONT ×2 (04:47→07:54)
[2021-08-11 04:49] LABS: Magnesium 3.5 mg/dL (1.6-2.3)
--- NOTE | 2021-08-11 04:52 | PC.NURSE ---
Many attempts to reach made by phone per several staff members. Cell number will not connect and mailbox is full on other number. Multiple SMS messages of phone number sent. No other numbers available.
--- NOTE | 2021-08-11 04:54 | PC.NURSE ---
Patient found unresponsive by writer technical publications with no pulse at 0303. Compressions initiated at 0303. NIGEL Harris called sahara burt overhead at this time as well. Please refer to code sheet for more information.
[2021-08-11 05:01] LABS: Partial Thromboplastin Time 104.9 SECONDS (22.3-36.8)
--- NOTE | 2021-08-11 05:03 | PDCODEBLUE ---
Code Blue Note Code Blue Note Time Arrived at Code Blue: 03:08 Initial Rhythm on Arrival: Pulseless electrical activity Airway Management: Pt intubated during resuscitation Chest Compressions: In process on arrival to bedside Result of Code Blue: Pt transferred to ICU Cardiac Rhythm Post Code: Atrial flutter with tachycardia Code Blue Summary: Nursing staff had called me before midnight patient was agitated and anxious. He was thrashing around in the bed in his heart rate was 160. The patient has known AFib in his heart rate had been in the 100-118 range throughout his hospital stay. He is complaining of severe pain but refused pain medications. While the nurse was on the phone with me the patient consented to receive pain medications. Nursing staff went in to check on the patient 10 minutes later and he was resting comfortably. In at 0303 nursing staff noted that the patient had become suddenly bradycardic. When they arrived at patient's bedside he was unresponsive and a sahara burt was called. Compressions were initiated. CPR was pause for pulse check and patient was found to be in PEA. A dose of epinephrine and bicarb were administered. At the next pulse check patient was in asystole. An Accu-Chek was performed from the finger and was too low to be detected. An amp of dextrose and a dose of epi was administered. The patient had return of Rosc at 3:15 a.m. (12 minute down time) repeat Accu-Chek from the finger was 15. However repeat Accu-Chek from the ear was 414. Patient was intubated at 3:20 a.m. with a 7.5 ET tube measuring 27 cm at the lip. Patient was given a L of normal saline bolus and transferred to the ICU. On arrival to the ICU the patient was markedly hypotensive. Levophed was started peripherally while I placed a right femoral central line. After placement of central line patient's Levophed was titrated up to 30 and Celestino-Synephrine was added at 60. The patient remained hypotensive. Stat labs were obtained and sent. The vasopressin was added in addition. Post code the patient was noted to be hypothermic at 96? and patient has continued to trend down in temperature to 93.8. Stat labs were obtained interestingly enough the patient's white count on the 4th was normal at 10 and had jumped to 18,300. However the patient had been afebrile prior to cardiac arrest. The patient's hemoglobin had dropped from 9.1 down to 7.6. Post arrest OG was placed and approximately 750 mL of dark red blood was aspirated in suction canister. However blood loss has seemed to stop at this point I suspect the bleeding is due to resuscitation efforts and the fact that the patient is anticoagulated on Eliquis. ABG demonstrated severe metabolic acidosis and lactic acid was 19. The patient also had acute renal failure with acute hyperkalemia. AST and ALT were elevated consistent with shock liver. Assessment and plan: 1. Cardiopulmonary arrest--possibly due to recurrent thrombus especially given the patient had development of pulmonary embolism and left atrial appendage thrombus while compliant with Xarelto as outpatient. Unfortunately the patient has had a large amount of blood out his NG tube and his hemoglobin has dropped 1.5 g. Heparin drip had been ordered but I would like to get a CT of the patient's head prior to resuming heparin as the patient did have an episode of agitation earlier in the evening and was uncooperative. It is unclear if he was confused or just anxious because of having chest pain. But I think we need to rule out intercranial process that caused a change in the patient's behavior prior to further anticoagulation. Unfortunately post code the patient has not woken up. He remains unresponsive with sluggishly reactive pupils. He is not on any sedation. Allowing for permissive hypothermia. The patient's case was discussed with the construction area manager and care was turned over at the end of my shift. 2. Acute renal failure with hyperkalemia likely due to A
[2021-08-11 05:07] LABS: Troponin I 0.137 ng/mL (0.000-0.034)
[2021-08-11 05:08] LABS: Alanine Aminotransferase 650 U/L (4-50); Albumin Level 1.7 g/dL (3.5-5.1); Alkaline Phosphatase 139 U/L (38-126); Anion Gap 22 mmol/L (8-16); Bilirubin,Total 1.1 mg/dL (0.2-1.3); Blood Urea Nitrogen 20 mg/dL (9-20); Calcium 6.9 mg/dL (8.4-10.2); Carbon Dioxide 8 mmol/L (22-30); Chloride 103 mmol/L (98-107); Estimated CRCL calculation 34 ml/min; Estimated Glomerular Filt Rate 36; Glucose 151 mg/dL (65-110); Potassium 6.2 mmol/L (3.4-5.0); Sodium 133 mmol/L (137-145)
[2021-08-11] MEDS: VASOPRESSIN INJ 100 UNITS in DEXTROSE 5% 95 ML IV CONT (05:09)
[2021-08-11 05:16] LABS: Anisocytosis 2+ (NORMAL); Atypical Lymphocytes Present; Band Neutrophils Percent 16 % (0-6); Lymphocytes Absolute Manual 2.41 K/mm3 (1.1-4.5); Metamyelocytes Percent 7 %; Monocytes Absolute Manual 2.41 K/mm3 (0.1-0.90); Monocytes Percent Manual 13 % (3-9); Neutrophils Absolute Manual 12.46 K/mm3 (1.3-6.7); Neutrophils Percent Manual 51 % (46-73); Platelet Estimate Adequate (Adequate); Poikilocytosis 1+ (NORMAL); Total Cells Counted 100
[2021-08-11 05:20] LABS: Prothrombin Time > 120.0 Seconds (11.1-14.7)
[2021-08-11 05:21] LABS: INR > 19.0
[2021-08-11] MEDS: SODIUM BICARBONATE 8.4% 150 MEQ in DEXTROSE 5% 1,000 ML 950 ML IV CONT ×2 (05:28→12:20)
[2021-08-11] MEDS: metroNIDAZOLE 500 MG/ISO 100ML 500 MG/100 ML BAG 100 MG IVPB (05:33)
[2021-08-11] MEDS: AZTREONAM 2 GM in SODIUM CHLORIDE 0.9% IV 100 ML 200 ML IVPB (05:37)
--- NOTE | 2021-08-11 05:41 | PC.NURSE ---
This patient, Adrian Dwyer, was received from [facility] on 08/11/21 at 0335. Status post arrest. Patient/family oriented to unit policies and routines
[2021-08-11 06:08] LABS: Aspartate Amino Transferase 1878 U/L (17-59); Lactic Acid Reflex 19.7 mmol/L (0.7-2.1)
[2021-08-11] MEDS: CALCIUM GLUCONATE 1,000 MG/10 ML VIAL 1000 MG IV PUSH (06:12)
[2021-08-11] MEDS: SODIUM CHLORIDE 0.9% IV 250 ML 30 ML IV CONT (06:24)
--- NOTE | 2021-08-11 06:42 | WPDPROCEDUR ---
Procedures Intubation Intubation Date: 08/11/21 Intubation Time: 03:20 A pre-procedural Time-Out was completed immediately before starting the procedure and confirmed: Patient Identification, Site, Procedure, Patient Position and the Availability of Requisite Equipment: No Sedative: none Laryngoscope: Magno ET tube size: 7.5 Tube secured depth (cm): 27 Tube secured location: lips Tube placement confirmation: visualized tube passing through cords, equal breath sounds bilaterally, no breath sounds over epigastrium and confirmation by capnometry Patient tolerated procedure: well Additional comments: ET tube was pulled back to 25 cm after chest x-ray was reviewed.
--- NOTE | 2021-08-11 06:43 | P.PCNBED_ITS ---
Procedures Central Line Placement Right Femoral: Central Line Date: 08/11/21 Central Line Time: 04:00 Performed Emergently - Given emergent patient condition, temporal constraints may have precluded informed consent.: Yes Patient Position: trendelenburg Patient placed on monitor/pulse ox: Yes Provider Prep: mask, sterile gown, sterile gloves, Max. sterile barrier precautions, cap and hand hygiene with conventional soap/water or alcohol based hand rub Central line prep: 2% Chlorhexidine scrub Sterile US Technique with sterile gel/sterile probe covers: Yes Central line lumen inserted: triple Chinese: 7 Length (cm): 16 Depth of Insertion (cm): 15 Post Procedure: sutured in place, good blood return, all ports aspirated, flushed, capped, transparent dressing, hemostatic product, antimicrobial produ ct, securement product and aseptic technique maintained throughout procedure Patient tolerated procedure: well Complications: none
[2021-08-11 06:56] LABS: Add Urine Microscopic? YES; Appearance Urine Cloudy (Clear); Bacteria Urine 4+ /hpf; Bilirubin Urine Negative (Negative); Blood Urine 2+ (Negative); Color Urine Amber (Yellow); Glucose Urine UA 3+ mg/dL (Negative); Hyaline Casts Urine 50+ /lpf; Ketones Urine Negative (Negative); Leukocyte Esterase Ur Negative LEU/UL (Negative); Mucus Urine Heavy /lpf; Nitrate Urine Negative (Negative); Protein Urine 2+ mg/dL (Negative); RBC Urine 21-50 /hpf (0-2); Specific Grav Ur 1.014 (1.001-1.035); Squamous Epithelial Cell Urine Many /hpf (Few); Urobilinogen Urine Negative mg/dL (<2.0); WBC Urine 31-50 /hpf
--- NOTE | 2021-08-11 07:00 | WPDGICN ---
GI Consult Note Consult date/time: I never saw the patient HPI: Adrian Dwyer is a 65 year old male [facility] Past Medical History Medical History Cerebrovascular accident Acute infarction of the right lentiform nucleus and caudate nucleus noted on brain MRI on 06/30/2014. Congestive heart failure Hyperlipidemia Hypertension Paroxysmal atrial fibrillation Peripheral vascular disease 2017: left SFA subtotal occlusion status post PCI by Dr. Dilip Heck [facility] Restless leg syndrome Rheumatoid arthritis Tobacco dependence Surgical History Surgical History History of amputation of toe Left 1st and 2nd toe amputation. History of fusion of cervical spine Family History Family History Other Coronary artery disease Rheumatoid arthritis Social History Social History Social History: The patient lives with his in [place]. 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 He has smoked a pack of cigarettes a day for 57 years. He drinks alcohol rarely on social occasions. No illicit substance use. He designates his Nydia Dwyer as his surrogate decision maker and he wishes to be a full code. Smoking packs per day: 1 Smoking cigarettes per day: 20.0 Years smoked: 55 Smoking pack-years: 55.00 Smoking status: Former smoker Tobacco type: cigarettes Substance use: never Substance use type: does not use Spiritual care concerns: No Meds Home Medications and Allergies Home Medications Medication Instructions Recorded Confirmed Type atorvastatin 40 mg PO DAILY 08/06/21 08/06/21 History cilostazol 100 mg PO BID 08/06/21 08/06/21 History cyclobenzaprine 10 mg PO BID PRN 08/06/21 08/06/21 History digoxin 125 mcg PO EVERY OTHER DAY 08/06/21 08/06/21 History diltiazem HCl 60 mg PO BID 08/06/21 08/06/21 History diphenoxylate-atropine 2.5 tablet PO QID PRN 08/06/21 08/06/21 History furosemide 40 mg PO DAILY 08/06/21 08/06/21 History isosorbide mononitrate 30 mg PO DAILY 08/06/21 08/06/21 History metoprolol tartrate 100 mg PO DAILY 08/06/21 08/06/21 History pantoprazole 40 mg PO BID 08/06/21 08/06/21 History prednisone 10 mg PO BID 08/06/21 08/06/21 History rivaroxaban [Xarelto] 15 mg PO DAILY 08/06/21 08/06/21 History Allergies Allergy/AdvReac Type Severity Reaction Status Date / Time Penicillins Allergy Mild Verified 04/21/10 23:27 Results Labs CBC & Chem 7: 08/11/21 04:31 08/11/21 04:32
[2021-08-11 07:37] LABS: Reflex Lactic Acid Yes or No Add Lactic
--- NOTE | 2021-08-11 08:10 | PCOTNOTE ---
Due to change in medical status patient will be discharged from skilled OT at this time. May re-order if patient condition improves.
[2021-08-11 08:28] LABS: D Dimer 7.92 ug/mL (<0.48)
[2021-08-11 08:48] LABS: Lactic Acid 20.5 mmol/L (0.7-2.1)
[2021-08-11 08:49] LABS: Fibrinogen 166 mg/dl (215-510)
[2021-08-11] MEDS: SODIUM CHLORIDE 0.9% IV 1,000 ML 999 ML IV CONT (08:50)
[2021-08-11] MEDS: PANTOPRAZOLE SODIUM IV 40 MG VIAL IV PUSH (08:51)
[2021-08-11] MEDS: CALCIUM GLUC 2,000 MG/NS 100ML 2,000 MG/100 ML BAG 100 MG IVPB (09:13)
[2021-08-11] MEDS: EPINEPHrine INJ 1 MG in DEXTROSE 5% IN WATER 250 ML 15.06 MG IV CONT (09:26)
--- NOTE | 2021-08-11 11:01 | PM.PNCARD ---
Progress Note: A&P Assessment and Plan (1) Acute on chronic systolic and diastolic heart failure, NYHA class 1: Code(s): I50.43 - Acute on chronic combined systolic (congestive) and diastolic (congestive) heart failure Status: Acute Assessment and Plan: Patient has chronic heart failure, probably systolic and diastolic, with rales and edema and elevated BNP consistent with a mild exacerbation on admission. However think the main reason for his admission was pulmonary embolus. Patient is obvious on max pressors support. Will hold all CHF medications at this point. Obviously also will hold anticoagulants (2) Pulmonary embolism: Code(s): I26.99 - Other pulmonary embolism without acute cor pulmonale Status: Acute Assessment and Plan: Stat echo pending. Holding anticoagulation for the time being and see appears to be bleeding significantly through his NG and is coagulopathic (3) Cardiomyopathy: Code(s): I42.9 - Cardiomyopathy, unspecified Status: Acute Assessment and Plan: Patient reports his heart function is 20-28%. Echo showed LV systolic dysfunction with EF 25 - 30%, severe MR. As above (4) Elevated troponin: Code(s): R77.8 - Other specified abnormalities of plasma proteins Status: Acute Assessment and Plan: Elevated troponin 0.3 but flat curve, no ACS or plaque rupture, type 2 infarction. Due to PE, chronic CHF and AFib. (5) Atrial fibrillation with RVR: Code(s): I48.91 - Unspecified atrial fibrillation Status: Acute Assessment and Plan: Paroxysmal atrial fibrillation. Holding metoprolol and anticoagulation (6) CAD (coronary artery disease): Code(s): I25.10 - Atherosclerotic heart disease of [place] coronary artery without angina pectoris Status: Acute Assessment and Plan: Probable CAD given reported history of 2 prior MIs. Stable. Supportive care and holding meds for now (7) Peripheral vascular disease: Code(s): I73.9 - Peripheral vascular disease, unspecified Status: Acute Assessment and Plan: History of PCI in 2017. Diffuse vascular disease (PVD, CAD, h/o strokes). High risk of recurrent events. Continue Statin. (8) Severe mitral valve regurgitation: Code(s): I34.0 - Nonrheumatic mitral (valve) insufficiency Status: Acute Assessment and Plan: This will need to be further workup as an outpatient. (9) Microcytic anemia: Code(s): D50.9 - Iron deficiency anemia, unspecified Status: Acute Assessment and Plan: Follow H&H. Stable thus far. Monitor for bleeding. (10) PEA (Pulseless electrical activity): Code(s): I46.9 - Cardiac arrest, cause unspecified Status: Acute Assessment and Plan: Significant event with significant down time. Hypothermic and on maximal pressor support. Continue supportive care and appreciate geropsychologist assistance Subjective Date/time seen: 08/11/21 11:01 Interval history: Cardiology follow up for CHF, Afib Date of service 08/11/2021: Events of last night noted and reviewed. PE a arrest for 12 minutes. Now on multiple pressors, hypothermic, not responsive and not on sedation Review of Systems Review of Systems: This review of systems was previously documented prior to his arrest event. All systems reviewed & are unremarkable except as noted in HPI and below Constitutional: Constitutional: Reports as per HPI, Reports difficulty sleeping, Reports fatigue, Reports lethargy and Reports weakness Eyes: Eyes: Reports as per HPI and Reports no additional eye complaints ENT: Reports as per HPI and Denies epistaxis Cardiovascular: Cardiovascular: Reports as per HPI, Denies chest pain, Reports pedal edema, Reports leg edema, Reports lightheadedness, Denies palpitations, Denies dyspnea and Denies dyspnea on exertion Respiratory: Respiratory: Reports as per HPI, Denies cough, Denies dyspnea and
[2021-08-11] MEDS: NOREPINEPHRINE 8 MG/D5W 250 ML 8 MG/250 ML BAG 75 MG IV CONT (11:18)
--- NOTE | 2021-08-11 11:39 | WPDCNINT ---
Assessment and Plan Assessment and plan (1) Cardiac arrest: Code(s): I46.9 - Cardiac arrest, cause unspecified Status: Acute (2) Anoxic brain injury: Code(s): G93.1 - Anoxic brain damage, not elsewhere classified Status: Acute (3) Acute respiratory failure: Code(s): J96.00 - Acute respiratory failure, unspecified whether with hypoxia or hypercapnia Status: Acute (4) Pulmonary embolism: Code(s): I26.99 - Other pulmonary embolism without acute cor pulmonale Status: Acute (5) CAD (coronary artery disease): Code(s): I25.10 - Atherosclerotic heart disease of [place] coronary artery without angina pectoris Status: Acute (6) Cardiomyopathy: Code(s): I42.9 - Cardiomyopathy, unspecified Status: Acute (7) Congestive heart failure: Code(s): I50.9 - Heart failure, unspecified Status: Acute (8) Deep venous thrombosis of left peroneal vein: Code(s): I82.452 - Acute embolism and thrombosis of left peroneal vein Status: Acute (9) PEA (Pulseless electrical activity): Code(s): I46.9 - Cardiac arrest, cause unspecified Status: Acute (10) Upper GI bleed: Code(s): K92.2 - Gastrointestinal hemorrhage, unspecified Status: Acute (11) Coagulopathy: Code(s): D68.9 - Coagulation defect, unspecified Status: Acute (12) DIC (disseminated intravascular coagulation): Code(s): D65 - Disseminated intravascular coagulation [defibrination syndrome] Status: Acute Additional Plan Overnight when I discussed the case with physician who managed patient's cardiac arrest and transfer patient to ICU, we considered patient may have had a new PE as he had a DVT in his leg although he was on anticoagulation. Patient had poor cardiac function with EF of 25% which does raise the possibility of primary cardiac etiology. Patient was in shock but also had upper GI bleed which ruled out tPA administration. His anticoagulation was discontinued but not reversed immediately. This morning when I saw the patient he had received 1 unit of PRBC and 1 unit of FFP. I ordered additional 3 units of FFP and additional 1 unit of PRBC transfusion. I considered giving patient Kcentra to completely reverse anticoagulation but it appears the patient's coagulopathy is partially secondary to DIC and also patient has a PE and a DVT and Kcentra would increase further risk of clots. My thought process was to stabilize him with transfusion and reverse the coagulopathy to the extent where the bleeding could be controlled without risking further worsening of PE and/or DVT since patient was not going to be a candidate for further anticoagulation at this time. I ordered stat echocardiogram to evaluate his right heart function as patient at this time could not go for a repeat CT scan for evaluation for a new PE. I also ordered stat Dopplers of lower extremity to evaluate for DVT in case patient will need IVC filter as he is not a candidate for anticoagulation at this time. Patient was already hypothermic we decided to maintain his temperature with TTM. Patient was on multiple vasopressor. I gave him 1 L of saline bolus and also ordered 2 amps of bicarb for acidosis. His prednisone was changed to hydrocortisone stress dose. Nonessential medications were discontinued. Epinephrine infusion was added. Repeat labs were ordered for later . Patient was also started on broad-spectrum antibiotics overnight for possible aspiration pneumonia. Overnight staff had been trying to contact patient's on the numbers listed in the chart but were unable to. Patient's nephew came to visit him and provided a new number and I spoke to patient's and updated her with overnight events and patient's current critical condition. Patient's and 5 children arrived and I had a conference meeting with them in presence of patient's nurse Flaca. I again went over patient's diagnosis of
[2021-08-11] MEDS: MORPHINE SULFATE (*CRX) 4 MG/ML INJ IV PUSH (12:15)
[2021-08-11] MEDS: LORazepam INJ (*CRX) 2 MG/ML VIAL IV PUSH (13:13)
[2021-08-11] MEDS: MORPHINE SULFATE (*CRX) 2 MG/ML INJ 5 MG IV PUSH (13:14)
--- NOTE | 2021-08-11 14:10 | PCDIET ---
Patient is currently on mechanical vent. NPO. DNR status. Plans for comfort measures only. No further nutritional interventions needed at this time.
--- NOTE | 2021-08-11 20:35 | PC.NURSE ---
Spoke with [facility] they will be coming to merchandise pickup/receiving associate patient. Update with time went to [facility] as 1530. Notified security that [facility] will be picking up the body.
--- NOTE | 2021-09-16 10:06 | PM.DDS ---
Discharge Summary Date and Time Date of : 08/11/21 Time of : 13:48 Provider Pronounced By: Flaca Mcleod RN and Erika Smith RN Probable Cause of Probable Cause of : Cardiac arrest Summary Hospital Course: Patient presented to the hospital with shortness of breath was found to have pulmonary embolism and DVT also echo shows ejection fraction 25% patient has elevated troponin cardiology was consulted patient had abdominal pain GI was consulted hematology was consulted also for DVT and PE recommended Eliquis during hospitalization patient had cardiac arrest transferred to ICU after resuscitation family decided to proceed with DNR patient comfortably (1) Abdominal pain: Code(s): R10.9 - Unspecified abdominal pain Status: Acute (2) Pulmonary embolism: Code(s): I26.99 - Other pulmonary embolism without acute cor pulmonale Status: Acute (3) Thrombus of left atrial appendage: Code(s): I51.3 - Intracardiac thrombosis, not elsewhere classified Status: Acute . (4) Acute exacerbation of systolic congestive heart failure: Code(s): I50.9 - Heart failure, unspecified Status: Acute (5) Elevated troponin: Code(s): R77.8 - Other specified abnormalities of plasma proteins Status: Acute (6) Severe mitral valve regurgitation: Code(s): I34.0 - Nonrheumatic mitral (valve) insufficiency Status: Acute (7) Deep venous thrombosis of left peroneal vein: Code(s): I82.452 - Acute embolism and thrombosis of left peroneal vein Status: Acute (8) Protein calorie malnutrition: Code(s): E46 - Unspecified protein-calorie malnutrition Status: Acute Assessment and Plan: Severe protein calorie malnutrition (9) Generalized weakness: Code(s): R53.1 - Weakness Status: Acute (10) Microcytic anemia: Code(s): D50.9 - Iron deficiency anemia, unspecified Status: Acute (11) Peripheral vascular disease: Code(s): I73.9 - Peripheral vascular disease, unspecified Status: Acute t (12) Paroxysmal atrial fibrillation: Code(s): I48.0 - Paroxysmal atrial fibrillation Status: Acute (13) Hypertension: Code(s): I10 - Essential (primary) hypertension Status: Chronic (14) Hyperlipidemia: Code(s): E78.5 - Hyperlipidemia, unspecified Status: Chronic (15) Tobacco dependence: Code(s): F17.200 - Nicotine dependence, unspecified, uncomplicated Status: Acute . (16) Rheumatoid arthritis: Code(s): M06.9 - Rheumatoid arthritis, unspecified Additional Data Confirmation of as documented by pronouncing clinician: Pupillary Reflex, Palpable Pulses, Response to Stimuli, Heart Tones and Breath Sounds Name of Provider Notified: Dr. Lechuga Time Provider Notified: 13:49 Provider Requests Autopsy: No Family Requests Autopsy: No Balance Truing Inspector Notified: Yes Date [facility] Notified of : 08/11/21 Time [facility] Notified of : 13:57
== END 2021-08-11 13:48 | disposition expired | DRG 208 ==
LOC: ANHED 14:50 → ANHIMU 16:46 → ANH3MED 08-13 10:15 → ANHICU 08-13 10:15 → ANHIMU 08-13 10:15
PROVIDERS: Emergency Medicine; Internal Medicine; Nurse Practitioner; Physician Assistant; Admitting Provider Internal Medicine; Emergency Provider Emergency Medicine; PCP Internal Medicine; Visit Provider Internal Medicine
DX: I26.99 Other pulmonary embolism without acute cor pulmonale (principal); D65 Disseminated intravascular coagulation [defibrination syndrome]; I50.43 Acute on chronic combined systolic (congestive) and diastolic (congestive) heart failure; K55.039 Acute (reversible) ischemia of large intestine, extent unspecified; I21.A1 Myocardial infarction type 2; N17.0 Acute kidney failure with tubular necrosis; K72.00 Acute and subacute hepatic failure without coma; I82.452 Acute embolism and thrombosis of left peroneal vein; I48.20 Chronic atrial fibrillation, unspecified; K92.2 Gastrointestinal hemorrhage, unspecified; E46 Unspecified protein-calorie malnutrition; I42.9 Cardiomyopathy, unspecified; I48.92 Unspecified atrial flutter; G93.1 Anoxic brain damage, not elsewhere classified; R57.9 Shock, unspecified; I46.8 Cardiac arrest due to other underlying condition; I51.3 Intracardiac thrombosis, not elsewhere classified; I11.0 Hypertensive heart disease with heart failure; E78.5 Hyperlipidemia, unspecified; G25.81 Restless legs syndrome; M06.9 Rheumatoid arthritis, unspecified; F17.210 Nicotine dependence, cigarettes, uncomplicated; E87.5 Hyperkalemia; I25.10 Atherosclerotic heart disease of native coronary artery without angina pectoris; D50.9 Iron deficiency anemia, unspecified; R68.0 Hypothermia, not associated with low environmental temperature; I73.9 Peripheral vascular disease, unspecified; D72.829 Elevated white blood cell count, unspecified; I34.0 Nonrheumatic mitral (valve) insufficiency; Z98.1 Arthrodesis status; Z86.73 Personal history of transient ischemic attack (TIA), and cerebral infarction without residual deficits; Z89.412 Acquired absence of left great toe; Z89.422 Acquired absence of other left toe(s); Z68.21 Body mass index [BMI] 21.0-21.9, adult; Z79.01 Long term (current) use of anticoagulants; I25.2 Old myocardial infarction; Z91.19 Patient's noncompliance with other medical treatment and regimen; Z66 Do not resuscitate
CPT/HCPCS: 31500; 36415; 36430; 36600; 71046; 71275; 74019; 74176; 80048; 80053; 80069; 80076; 80162; 81001; 81003; 82375; 82607; 82728; 82746; 82805; 82948; 83050; 83540; 83550; 83605; 83735; 83880; 84100; 84132; 84134; 84238; 84439; 84443; 84484; 85014; 85018; 85025; 85027; 85055; 85380; 85384; 85610; 85730; 86850; 86900; 86901; 86920; 87040; 87077; 87086; 87088; 87186; 92950; 93005; 93306; 93308; 93923; 93970; 94002; 96365; 96366; 96374; 96375; 96376; 97110; 97161; 97165; 97535; 99285; A9270; C1751; C9113; G0378; J0171; J0610; J1644; J1756; J1940; J2060; J2270; J2370; J2405; J3475; J7030; J7040; J7050; J7060; J7070; J7512; P9016; P9017; P9047; Q9967